=== PATIENT | male | born 1935 | race Caucasian/White ===

== ENCOUNTER 2016-12-05 12:47 | Emergency (ER) | payer MEDICARE, OTHER ==
[~2016-12-05] VITALS: Ht 180.3 cm; Wt 62.1 kg
[~2016-12-05 12:47] MED LIST: ALBUTEROL0.09 MG/A1 IH; ASPIRIN 325MG325 MG PO; ATORVASTATIN CA40 MG PO; AVAPRO75 MG PO; BENADRYL 25MG C25 MG PO; CYPROHEPTADINE H4 M1 PO; FERROUS SULFAT200 M1 PO; FUROSEMIDE 40MG40 M1 PO; GUAIFENESIN LA600 MG PO; HCTZ/LISINOPRIL1 TA1 PO; HYCODAN 5MG. TAB5 MG PO; IPRATROPIUM BROM3 M1 IN; LASIX 40MG. TAB40 MG PO; LOPRESSOR 25MG.25 MG PO; LORADAMED10 MG PO; LOSARTAN POTASS50 MG PO; MIRALAX(PO17 GM/1 PA PO; MIRTAZAPINE7.5 MG PO; MOBIC7.5 MG PO; NICOTINE 7 MG TD; NICOTINE PATCH;14 MG TD; NOMEDS; NYSTATIN 1100000 UNI PO; PANTOPRAZOLE PO; POTASSIUM CHLO20 ME2 PO; PRAMIPEXOLE D0.25 M1 PO; PREDNISONE20 MG PO; SYMBICORT 10.10.2 M1 IH; SYMBICORT1 AE1 IH; THE MEDICINE S200 M1 OR; TIOTROPIUM BRO18 MCG IH; WELLBUTRIN 150150 MG PO; Zithromax500 MG PO
[2016-12-05 13:04] LABS: LYMPH # 2.7 K/mm3 (0.7-4.5); LYMPH % 28.1 % (10-50)
[2016-12-05 13:13] LABS: HEMOGLOBIN 14.6 g/dL (14.1-18.0)
--- NOTE | 2016-12-05 13:14 | Emergency Room Report ---
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 N Clinical Suspician of Infection? N Mental Status: 1 - Regular (Normal Baseline) Sepsis Risk:Low Sepsis Risk Have you (or family members/close friends) recently traveled outside the [place]? N If Yes, where/when: Have you had exposure to infectious disease within the past month? N TB? Other? Specify: Comment The patient complains of trouble speaking and swallowing for 3-4 days. Family states symptoms started on Saturday 3 days ago. He denies headache or vomiting. He denies numbness or weakness of his extremities presently, but says that he awakened with his foot asleep several days ago and it went away. 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 He denies visual disturbance. ALLERGIES Coded Allergies: No Known Allergies (03/05/16) Home Medications Reported Medications ASPIRIN (Aspirin 325MG) 325 MG PO DAILY Losartan Potassium (Losartan 50MG) 50 MG PO DAILY #30 Furosemide 40 MG PO BID #60 PRAMIPEXOLE DI-HCL (Pramipexole Dihydrochloride) 0.25 MG PO QHS #30 History Medical History General CAD? No Angina: No [place]: No Hypertension? Yes Hyperlipidemia? No CHF? No DVT? No PE? No COPD? Yes Asthma? No Anemia? No GERD? No Gastric ulcers? No GI Bleed? No Hernia? No Thyroid Problems? No Hypothyroidism? No CVA? No Seizures? No Diabetes? No Renal Insuffiency? Yes End Stage Renal Disease? No UTI? No Stones? No BPH? No GB Disease: No Nephritic Syndrome? No Asplenia? No Hepatitis? No Sickle Cell Disease? No Arthritis? Yes Migraines? No Cataracts? No Glaucoma? No MRSA? No HIV? No TB? No Anxiety? No Depression? No Cancer? No More? No Immunization Hx DT/Tetanus Unknown Flu Refused Pneumonia Received In Past Surgical Hx Previous Surgery?Y RIGHT EAR SURGERY AAA Family History Family Hx Diabetes No CAD No Hypertension Yes Hyperlipidemia No Cancer No TB No Social History Smoking Hx Smoker: Never Smoker Tobacco: No Type N/A Packs/day < 1 Pack Alcohol Alcohol: No Review of Systems All Other Systems Reviewed and Negative Constitutional denies fever Gastrointestinal denies vomiting Psychiatric/Neurological denies headache, denies numbness, denies weakness Physical Exam Vital Signs Vital Signs Date Time Temp Pulse Resp B/P Pulse O2 O2 Flow FiO2 Ox Delivery Rate 12/05 1339 67 18 153/89 99 12/05 1333 97.6 87 18 153/89 97 12/05 1321 97.6 87 18 187/102 97 12/05 1249 97.6 87 18 197/93 97 General Appearance normal appearance, WD/WN Eye Exam - bilateral eye normal exam, bilateral eye PERRL, bilateral eye EOMI Ear, Nose, Throat hearing grossly normal, normal ENT inspection Neck normal inspection, non-tender, supple, full range of motion Respiratory Status Yes: trachea midline, chest symmetrical, non tender chest. No: respiratory distress. Lung Sounds bilateral: normal breath sounds, lungs clear. Cardiovascular normal exam, regular rate/rhythm, no peripheral edema, no gallop, no JVD, no murmur, no rub, normal peripheral pulses Peripheral Pulses Pulses normal Yes Gastrointestinal normal bowel sounds, normal exam, non tender, soft, no organomegaly Extremities non-tender, normal range of motion, normal inspection Neurologic alert, no motor/sensory deficits, oriented x 3, RIGHT facial paralysis, chronic. cranial nerves otherwise intact Mental status normal mood/affect Skin intact, normal color, warm/dry Medical Decision Making LABS/Meds/Orders Pt receiving controlled substance in ED? No Results/Orders Laboratory Tests 12/05/16 1255: Creatine Kinase 77, CK-MB (CK-2) Rel Index 0.6, CK and CKMB Interp < 0.5, Troponin I < 0.02 12/05/16 1255: Sodium 137, Potassium 4.1, Chloride 99, Carbon Dioxide 30, BUN 28 H, Creatinine 2.1 H, Estimated Creat Clear 24 L, Estimated GFR (MDRD) 30, Glucose 105, Calcium 9.2, Total Bilirubin 0.9, AST 8 L, ALT 9 L, Alkaline Phosphatase 114, Total Protein 8.2, Albumin 3.9, Globulin 4.3 H, Albumin/Globulin Ratio 0.9 L, PT 10.7, INR 0.99, APTT 29.3, WBC 9.5, RBC 5.02, Hgb 14.6, Hct 43.9, MCV 87.4, RDW 14.6, Plt Count 234, MPV 8.6, Gran % 60.9, Gran # 5.8, Lymphocytes % 28.1, Monocytes % 7.6, Eosinophils % 2.8, Basophils % 0.6, Lymphocytes # 2.7, Monocytes # 0.7, Eosinophils # 0.3, Basophils # 0.1, PUBS MCHC 33.0, MCH 28.8 Current Medication Orders Sig/Jhonny Start time Last Medication Dose Route Stop Time Status Admin Labetalol HCl 10 MG ONCE ONE 12/05 1330 DC 12/05 IV 12/05 1331 1328 Labetalol HCl 0 .STK-MED ONE 12/05 1327 DC IV Sodium Chloride 10 ML PRN PRN 12/05 1300 DCD IV 12/06 1256 Orders Procedure Date/time Status DIET-NOTHING BY MOUTH 12/05 D Active PARTIAL THROMBOPLASTIN TIME 12/05 1334 Complete PROTHROMBIN TIME 12/05 1334 Complete TUNNEL ELASTIC OPERATOR CHAINSTITCH 12/05 1303 Active CARDIAC ENZYMES 12/05 1303 Complete ELECTROCARDIOGRAM REQUEST 12/05 1256 Active IV SALINE LOCK 12/05 1256 Active CBC WITH AUTO DIFF 12/05 1256 Complete CHEM 12 PROFILE 12/[address] HEAD REQ 12/05 1255 Complete CM/EKG CM/EKG Comments EKG interpreted by Mina Olivas MD: Rhythm: sinus Rate: 81 [place]: normal Ectopy: none Conduction: normal ST Segment Changes: none T Wave Changes: none Q Waves: none No evidence of acute ischemia or injury Poor R-wave progression Low voltage QRS Baseline artifact and wander present, but I consider the EKG adequate for accurate interpretation. XRAY/CT/US XRAY/CT/US CT head Comment CT scan interpreted by radiologist: 17 mm RIGHT cerebellar hemorrhage with surrounding edema. Mass effect on the fourth ventricle, but still patent with no hydrocephalus. Probable hemorrhagic infarct. Progress - 1:26 PM: Discussed with Nina, pool coordinator [facility], who accepts the patient for Dr. Campbell in the emergency department. Departure Departure Disposition DC/XFER from ER to [facility] Clinical Impression Primary Impression: Cerebellar hemorrhage Qualifiers: Intracerebral hemorrhage etiology: nontraumatic Laterality: right Qualified Code: I61.4 - Nontraumatic intracerebral hemorrhage in cerebellum Condition STABLE ED Critical Care Critical Care Yes Time spent 30-74 min Vital system(s) involved: Central Nervous System I was present at bedside for Coordinating pt's care, Interpreting EKGs/Strips , During my initial exam, Discussing pt condition, Examining radiographs at [id number]
[2016-12-05 13:39] VITALS: BP 153/89
--- NOTE | 2016-12-05 14:49 | RADIOLOGY REPORT PS360 ---
CT HEAD W/O CONTRAST HISTORY: Left facial droop with weakness WEAKNESS ORDERING PHYSICIAN: Mina Olivas MD PATIENT AGE: 81 years COMPARISON: 07/22/2016 TECHNIQUE: Axial images obtained without contrast. Brain and bone windows reviewed. FINDINGS: There is a 17 mm area of hyperdensity noted in the right cerebellar hemisphere centrally with a small amount of surrounding edema consistent with acute cerebellar hemorrhage. No midline shift. There is some mild mass effect upon the right lateral aspect of the fourth ventricle. No hydrocephalus. There is mild generalized atrophy with periventricular ischemic gliotic changes. No midline shift evident. IMPRESSION: 1. 17 mm area of hemorrhage in the right cerebellar hemisphere with mild amount of surrounding edema which may be related to hemorrhagic infarction with minimal mass effect upon the fourth ventricle but no evidence of midline shift. Hemorrhagic neoplastic process is included in the differential diagnosis. 2. Mild atrophy with chronic ischemic change. Critical result called to Mina Olivas MD on 12/05/2016 1:13 PM.
== END 2016-12-05 13:40 | disposition short-term general hospital (02) ==
LOC: ER 12:47
PROVIDERS: Emergency Medicine
DX: I61.9 Nontraumatic intracerebral hemorrhage, unspecified (principal); R47.81 Slurred speech; I10 Essential (primary) hypertension; G81.91 Hemiplegia, unspecified affecting right dominant side; Z79.82 Long term (current) use of aspirin; Z79.899 Other long term (current) drug therapy; J44.9 Chronic obstructive pulmonary disease, unspecified

== ENCOUNTER 2017-01-26 09:47 | Emergency (ER) | payer MEDICARE, OTHER ==
[~2017-01-26] VITALS: Ht 180.3 cm; Wt 62.1 kg
--- NOTE | 2017-01-26 09:59 | Emergency Room Report ---
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 N Clinical Suspician of Infection? N Mental Status: 1 - Regular (Normal Baseline) Sepsis Risk:Low Sepsis Risk Have you (or family members/close friends) recently traveled outside the [place]? N If Yes, where/when: Have you had exposure to infectious disease within the past month? N TB? Other? Specify: Diarrhea for two weeks, diffuse abdominal pain for the last few days, no vomiting, no back pain, but has hx AAA with repair and is full code. No urinary sx. Has recently been taken off his usual Lasix and now had progressively edematous BLE w/o calf tenderness or SOB. No syncope. No new neurological sx. Seen by PCP this week with c/o chronic edema, and PCP did not recommend going back on the Lasix at that time. Since that visit, the edema is unchanged. He has no SOB. He is on a wait list for NH. Source patient, family ALLERGIES Coded Allergies: No Known Allergies (03/05/16) Home Medications Reported Medications ASPIRIN (Aspirin 325MG) 325 MG PO DAILY Losartan Potassium (Losartan 50MG) 50 MG PO DAILY #30 Furosemide 40 MG PO BID #60 PRAMIPEXOLE DI-HCL (Pramipexole Dihydrochloride) 0.25 MG PO QHS #30 History Medical History General CAD? No Angina: No [place]: No Hypertension? Yes Hyperlipidemia? No CHF? No DVT? No PE? No COPD? Yes Asthma? No Anemia? No GERD? No Gastric ulcers? No GI Bleed? No Hernia? No Thyroid Problems? No Hypothyroidism? No CVA? No Seizures? No Diabetes? No Renal Insuffiency? Yes End Stage Renal Disease? No UTI? No Stones? No BPH? No GB Disease: No Nephritic Syndrome? No Asplenia? No Hepatitis? No Sickle Cell Disease? No Arthritis? Yes Migraines? No Cataracts? No Glaucoma? No MRSA? No HIV? No TB? No Anxiety? No Depression? No Cancer? No More? No Immunization Hx DT/Tetanus Unknown Flu Refused Pneumonia Received In Past Surgical Hx Previous Surgery?Y RIGHT EAR SURGERY AAA Family History Family Hx Diabetes No CAD No Hypertension Yes Hyperlipidemia No Cancer No TB No Social History Smoking Hx Smoker: Current Every Day Smoker Tobacco: Yes Type Cigarettes Packs/day < 1 Pack Alcohol Alcohol: No Review of Systems All Other Systems Reviewed and Negative Constitutional no symptoms reported (diminished appetite, chronic) Cardiovascular denies chest pain (hx AAA w repair see hpi) Gastrointestinal see HPI, other (hx hernia;wtloss;rehab 2wksago) Musculoskeletal see HPI (edema off Lasix) Physical Exam Vital Signs Vital Signs Date Time Temp Pulse Resp B/P Pulse O2 O2 Flow FiO2 Ox Delivery Rate 01/26 0948 98.9 73 18 122/67 98 General Appearance normal appearance, WD/WN, no apparent distress Eye Exam - bilateral eye normal exam, bilateral eye PERRL, bilateral eye EOMI Neck normal inspection, non-tender, supple, full range of motion Respiratory Status Yes: trachea midline, chest symmetrical, non tender chest. No: respiratory distress, tender on palpation, use of accessory muscles, pain on inspiration, pain on expiration, productive cough, non productive cough. Lung Sounds bilateral: normal breath sounds, lungs clear. Cardiovascular normal exam, regular rate/rhythm, no gallop, no JVD, no murmur, no rub, normal peripheral pulses (mild ankle edema) Gastrointestinal normal bowel sounds, normal exam, non tender, soft, no organomegaly, no guarding, no rebound Extremities non-tender, normal range of motion, normal inspection, normal capillary refill, no calf tenderness, pedal edema Strength 5 Upper Ext (L), 5 Upper Ext (R), 5 Lower Ext (L), 5 Lower Ext (R) Neurologic alert, normal exam, no motor/sensory deficits, oriented x 3 Glascow Coma Scale Glascow Coma Scale Response Value EYE response: 4 Spontaneously 4 MOTOR response: 6 OBEYS 6 VERBAL response: 5 Oriented & Converses 5 Total 15 Skin intact, warm/dry, pallor Lymphatic no adenopathy Medical Decision Making LABS/Meds/Orders Pt receiving controlled substance in ED? No Results/Orders Laboratory Tests 01/26/17 1205: Urine Color YELLOW, Urine Appearance CLOUDY, Urine pH 5.5, Ur Specific [place] < = 1.005, Urine Protein NEGATIVE, Urine Ketones NEGATIVE, Urine Blood 2+ H, Urine Nitrate NEGATIVE, Urine Bilirubin NEGATIVE, Urine Urobilinogen 0.2, Ur Leukocyte Esterase NEGATIVE, Urine RBC 10-20, Urine WBC 20-50, Ur Squamous Epith Cells 5-10, Urine Bacteria 4+, Urine Glucose NEGATIVE 01/26/17 0945: Sodium 139, Potassium 4.1, Chloride 103, Carbon Dioxide 27, BUN 22 H, Creatinine 1.6 H, Estimated Creat Clear 32 L, Estimated GFR (MDRD) 42, Glucose 87, Calcium 8.7, Total Bilirubin 1.0, AST 14 L, ALT 9 L, Alkaline Phosphatase 104, Troponin I < 0.02, Total Protein 7.3, Albumin 3.1 L, Globulin 4.2 H, Albumin/Globulin Ratio 0.7 L, WBC 8.9, RBC 3.59 L, Hgb 11.0 L, Hct 33.4 L, MCV 93.1, RDW 14.8, Plt Count 192, MPV 7.8, Gran % 67.5, Gran # 6.0, Lymphocytes % 18.6, Monocytes % 8.5, Eosinophils % 5.0, Basophils % 0.4, Lymphocytes # 1.7, Monocytes # 0.8, Eosinophils # 0.4, Basophils # 0.0, PUBS MCHC 33.0, MCH 30.7 Orders Procedure Date/time Status DIET-NOTHING BY MOUTH 01/26 L Active CULTURE, URINE 01/26 1205 Active 12 LEAD EKG-AYAH (INITIAL) 01/26 1000 Active ELECTROCARDIOGRAM REQUEST 01/[address] SCAN REQ 01/27 956 Active URINALYSIS/COMPLETE 01/27 956 Complete TROPONIN I 01/27 956 Complete CBC WITH AUTO DIFF 01/27 956 Complete CHEM 12 PROFILE 01/27 956 Complete CM/EKG CM/EKG EKG rate, NSR, rhythm, no evid. of ischemic chgs, no ectopy, normal QRS, normal SC, normal EKG (NSR 71) XRAY/CT/US XRAY/CT/US CT abdomen, pelvis, chest CT interpretation by reviewed by me (report reviewed) Time results known: 1213 CT Results normal/NAD, stable repaired aneurysm; suspect mild ileus or enteritis (clinically has enteritis) Progress ED Progress Notes 1 Date 01/26/17 Time 1037 Comment I spoke extensively with his stepdaughter now at the bedside. He has a therapist , HHN, and family who check on him. He lives alone. With progressive weight loss and diminished appetite, she is trying to get him on waiting lists for various NH's in the area. He was in rehab in [place] until 2 wks ago for same and it was thought he was improved enough to be d/c'd home, but stepdaughter states he continues to have diminished appetite and diminished PO intake as before and she is working hard on placement. ED Progress Notes 2 Date 01/26/17 Time 1222 Comment No diarrhea while in ED today. Recheck abdomen soft with pos BS all four quadrants. Advised extremely close f/u w PCP regarding concern for diarrhea, encourage PO consumption, recommend having a sitter during the day for care while waiting on NH placement; apparently on list at [place] currently. Departure Departure Time of Disposition 1223 Disposition DC Home or Self Care(routine) Clinical Impression Primary Impression: Diarrhea Qualifiers: Diarrhea type: unspecified type Qualified Code: R19.7 - Diarrhea, unspecified Secondary Impressions: Pyuria Condition STABLE Referrals Manuel STEVENSON,[place] Patient Instructions Diarrhea Additional Instructions Bring a stool sample to Dr. Jackson; make an appointment in one to two days to see Dr. Jackson about the diarrheaand to recheck bowel sounds and abdominal exam, possible repeat imaging at Dr. Jackson' discretion, and to discuss the pedal edema issue as well as the chronic decreased appetite. Recommend Ensure protein drinks in the meantime. Discharge Counseling Counseled pt/family regarding diagnosis, test results, medications/RX, home care, follow up needs Prescriptions Current Visit Scripts CIPROFLOXACIN HCL (Cipro 250MG TAB) 250 MG PO BID #14 TAB ED Critical Care Critical Care No at 1166
[2017-01-26 10:01] LABS: LYMPH # 1.7 K/mm3 (0.7-4.5); LYMPH % 18.6 % (10-50)
--- OUTSIDE RECORDS SUMMARY | 2017-01-26 10:03 | External Medical Summary Rpt | CCD ---
Author Author , PAULO BATES Address Unknown Phone [email or web address] Purpose Continuity of Care Document - 12-05-2016 through 2016 Results Labs Lab Lab Date Result Refere Interp Status Commen Order Detail nces retati t Range on Magnesium SerPl-mCnc (12-14-2016 09:33) Magnesi 2.0 1.9-2.4 complet um 017 mg/dL ed SerPl-m 09:33 Cnc Phosphate SerPl-mCnc (12-05-2016 15:38) Phospha 3.1 2.5-4.5 complet te 017 mg/dL ed SerPl-m 15:38 Cnc Magnesium SerPl-mCnc (12-05-2016 15:38) Magnesi 2.3 1.9-2.4 complet um 017 mg/dL ed SerPl-m 15:38 Cnc
--- OUTSIDE RECORDS SUMMARY | 2017-01-26 10:03 | External Medical Summary Rpt | CCD ---
Author Author , PAULO BATES Address Unknown Phone [email or web address] Purpose Continuity of Care Document - 12-05-2016 [...]
--- OUTSIDE RECORDS SUMMARY | 2017-01-26 10:05 | External Medical Summary Rpt | CCD ---
Demographics Preferred Language [place]oth[place] Marital Status Unknown Jainism Affiliation Unknown Race Unknown Ethnic Group Unknown Author Author , PAULO BATES Address Unknown Phone Immunization Unable to retrieve immunization data due to connection failure with Immunization Registry. Please try again later.
--- OUTSIDE RECORDS SUMMARY | 2017-01-26 10:05 | External Medical Summary Rpt ---
Author Author [employer], [employer] Organization [employer] Address Unknown Phone Unavailable Results INR in Blood by Coagulation assay Observa Value Referen Units Interpr Notes Date tion ce etation Range IS PATIENT ON ANTICOAGULANTS? N PTT RESULTS MUST BE CALLED IF PT ON HEPARIN!!! Y INR in 0.9 - 1.1 No Normal INDICATIO Sep 13 Blood by informati N 2017 Coagulati on in 12:55 PM on assay source INR data RANGETHER APY FOR DVT, PE, ATRIAL FIB; 2.0 - 3.0PROPHY LAXIS FOR VTETHERAP Y FOR MECHANICA L HEART 2.5 - 3.5VALVE; PREVENTIO N OF SYSTEMICE MBOLISM SECONDARY TO AMI Prothromb 9.4 - SECONDS Normal No Sep 13 in time 11.8 informati 2017 (PT) in on in 12:55 PM Platelet source poor data plasma by Coagulati on assay Activated partial thrombplastin time (aPTT) in Platelet poor plasma by Coagulation assay Observa Value Referen Units Interpr Notes Date tion ce etation Range IS PATIENT ON ANTICOAGULANTS? N PTT RESULTS MUST BE CALLED IF PT ON HEPARIN!!! Y Activated 23.6 - SECONDS Normal No Sep 13 partial 34.0 informati 2017 thrombpla on in 12:55 PM stin time source (aPTT) data in Platelet poor plasma by Coagulati on assay Comprehensive metabolic 2000 panel in Serum or Plasma Observa Value Referen Units Interpr Notes Date tion ce etation Range Albumin/G 1.1 - 1.8 No Low No Sep 13 lobulin informati informati 2016 [Mass on in on in 12:55 PM ratio] in source source Serum or data data Plasma Albumin 3.4 - 5.0 gm/dL Normal No Sep 13 [Mass/vol informati 2017 ume] in on in 12:55 PM Serum or source Plasma data Alkaline 46 - 116 U/L Normal No Sep 13 phosphata informati 2017 se on in 12:55 PM [Enzymati source c data activity/ volume] in Serum or Plasma Bilirubin 0.2 - 1.0 mg/dL Normal No Sep 13 .total informati 2017 [Mass/vol on in 12:55 PM ume] in source Serum or data Plasma Urea 7 - 18 mg/dL High No Sep 13 nitrogen informati 2017 [Mass/vol on in 12:55 PM ume] in source Serum or data Plasma Calcium 8.5 - mg/dL Normal No Sep 13 [Mass/vol 10.1 informati 2017 ume] in on in 12:55 PM Serum or source Plasma data Chloride 98 - 107 mmoL/L Normal No Sep 13 [Moles/vo informati 2017 lume] in on in 12:55 PM Serum or source Plasma data Carbon 21.0 - mmoL/L Normal No Sep 13 dioxide, 32.0 informati 2017 total on in 12:55 PM [Moles/vo source lume] in data Serum or Plasma Creatinin 0.70 - mg/dL High No Sep 13 e 1.30 informati 2016 [Mass/vol on in 12:55 PM ume] in source Serum or data Plasma Creatinin 50 - 200 ML/MIN Low No Sep 13 e renal informati 2017 clearance on in 12:55 PM source predicted data by Cockcroft -Gault formula Estimated >60 ML/MIN No REFERENCE Sep 13 informati RANGE: 2017 glomerula on in >60 12:55 PM r source ML/MIN/1. filtratio data 73 SQUARE n rate METERSIf (GF this patient is -A merican, then multiply theresult by 1.210. Globulin 1.3 - 3.2 gm/dL High No Sep 13 [Mass/vol informati 2017 ume] in on in 12:55 PM Serum source data Glucose 74 - 106 mg/dL Normal No Sep 13 [Mass/vol informati 2017 ume] in on in 12:55 PM Serum or source Plasma data Potassium 3.5 - 5.1 mmoL/L Normal No Sep 13 informati 2017 [Moles/vo on in 12:55 PM lume] in source Serum or data Plasma Sodium 136 - 145 mmoL/L Normal No Sep 13 [Moles/vo informati 2017 lume] in on in 12:55 PM Serum or source Plasma data Aspartate 15 - 37 U/L Low No Sep 13 informati 2017 aminotran on in 12:55 PM sferase source [Enzymati data c activity/ volume] in Serum or Plasma Alanine 12 - 78 U/L Low No Sep 13 aminotran inform2016 sferase on in 12:55 PM [Enzymati source c data activity/ volume] in Serum or Plasma Protein 6.4 - 8.2 gm/dL Normal No Sep 13 [Mass/vol inform2016 ume] in on in 12:55 PM Serum or source Plasma data CBC W Auto Differential panel in Blood Observa Value Referen Units Interpr Notes Date tion ce etation Range Basophils 0 - 0.2 K/MM3 Normal No Sep 13 inform2016 [#/volume on in 12:55 PM ] in source Blood by data Automated count Basophils 0.1 - 2.0 % Normal No Sep 13 /100 inform2016 leukocyte on in 12:55 PM s in source Blood by data Automated count Eosinophi 0.0 - 0.4 K/mm3 Normal No Sep 13 ls 2016 [#/volume on in 12:55 PM ] in source Blood by data Automated count Eosinophi 0.1 - % Normal No Sep 13 ls/100 12.0 inform2016 leukocyte on in 12:55 PM s in source Blood by data Automated count Granulocy 1.3 - 8.0 K/mm3 Normal No Sep 13 regine 2016 [#/volume on in 12:55 PM ] in source Blood by data Automated count Granulocy 37.0 - % Normal No Sep 13 regine/100 80.0 inform2016 leukocyte on in 12:55 PM s in source Blood by data Automated count Hematocri 42.0 - % Normal No Sep 13 t [Volume 52.0 2016 on in 12:55 PM Fraction] source of Blood data Hemoglobi 14.1 - g/dL No No Sep 13 n 18.0 informati inform2016 [Mass/vol on in on in 12:55 PM ume] in source source Blood data data Lymphocyt 0.7 - 4.5 K/mm3 Normal No Sep 13 es 2016 [#/volume on in 12:55 PM ] in source Unspecifi data ed specimen by Automated count Lymphocyt 10 - 50 % Normal No Sep 13 es 2016 [#/volume on in 12:55 PM ] in source Unspecifi data ed specimen by Automated count Erythrocy 27 - 31.2 pg Normal No Sep 13 te mean 2016 corpuscul on in 12:55 PM ar source hemoglobi data n [Entitic mass] Erythrocy 31.8 - g/dl Normal No Sep te mean 35.4 inform2016 corpuscul on in 12:55 PM ar source hemoglobi data n concentra tion [Mass/vol ume] by Automated count Erythrocy 82.2 - fl Normal No Sep 13 te mean 97.8 inform2016 corpuscul on in 12:55 PM ar volume source [Entitic data volume] by Automated count Monocytes 0.1 - 1.0 K/mm3 Normal No Sep 13 inform2016 [#/volume on in 12:55 PM ] in source Blood by data Automated count Monocytes 1.7 - 9.3 % Normal No Sep 13 /100 inform2016 leukocyte on in 12:55 PM s in source Blood by data Automated count Platelet 7.4 - fl Normal No Sep mean 10.4 inform2016 volume on in 12:55 PM [Entitic source volume] data in Blood by Automated count Platelets 142 - 424 K/mm3 Normal No Sep 13 informati 2016 [#/volume on in 12:55 PM ] in source Blood data Erythrocy 4.6 - 6.2 M/mm3 Normal No Sep 13 regine inform2016 [#/volume on in 12:55 PM ] in source Amniotic data fluid Erythrocy 11.5 - % Normal No Sep 13 te 17.5 inform2016 distribut on in 12:55 PM ion width source [Entitic data volume] by Automated count Leukocyte 4.8 - K/MM3 Normal No Sep 13 s 10.8 informati 2016 [#/volume on in 12:55 PM ] in source Blood data
--- OUTSIDE RECORDS SUMMARY | 2017-01-26 10:05 | External Medical Summary Rpt | CCD ---
Demographics Preferred Language Citizen Of [place] Marital Status Unknown Mandaen Affiliation Unknown Race Unknown Ethnic Group Unknown Author Author , PAULO BATES Address Unknown Phone Immunization Unable to retrieve immunization data due to connection failure with Immunization Registry. Please try again later.
[2017-01-26 10:12] LABS: BUN 22 mg/dL (7-18); GFR (ESTIMATED) 42 ML/MIN (>60)
--- NOTE | 2017-01-26 11:35 | RADIOLOGY REPORT PS360 ---
CTA-CHEST HISTORY: HX OF AAA W/REPAIR, HAS ABD PAIN/DIRRHEA history of left lateral lower rib pain. Fall 5 days ago. Patient Age: 81 years: Male Ordering Physician: Fatmata Stack MD TECHNIQUE: Helical CT scanning performed through the chest following bolus administration of 100 cc Isovue-370 followed x 40 mL normal saline bolus. . From the acquired thin sections thickened axial coronal and sagittal reconstructions on CT workstation. COMPARISON :CT chest with contrast 01/08/2013. FINDINGS Regarding the left rib pain but there is a subtle acute fracture at the medial most left ninth rib near the costovertebral junction. This is best seen on axial images 51-48. The patient has some prominent degenerative, hypertrophic changes between the posterior ribs in the transverse processes of the lower thoracic spine through these regions. No transverse process or spinal vertebral fracture. T10-11 Mild posterior endplate hypertrophy and subtle posterior offset of T10- on T11. Features may yield borderline spinal stenosis at this level. It T9 extent facet hypertrophy on the left indenting left aspect of thecal sac mild to moderate facet arthropathy hypertrophy at other levels. Diffuse demineralization. No additional fractures identified. No pneumothorax. No pleural effusion. Emphysema. COPD again noted.. Only subtle incremental progression features since 2013. chronic lung parenchymal changes with fibrotic changes bilaterally most evident about the periphery the lungs. These fibrotic changes & early honeycombing most evident along posterior aspect right lower lobe There is an small slight stippled nodular appearance at the periphery of the superior RUL which has developed since prior study.. Could reflect a small area of active inflammatory change/infiltrate vs some progressive slightly nodular fibrotic changes. However Would benefit from follow-up CT 6 months to exclude any more significant process. Axial slice 19-20 .. Other tiny areas of slight increased peripheral density most likely due to scarring periphery of mid right lung, axial 30. Small less than 1 cm pleural-based area of nodularity just behind the reflection of major fissure at left lung axial slice 20 is new as well. Again favor scarring but would benefit from 6 month follow-up. . Stable apical pleural scarring. Mediastinum. No mediastinal mass or adenopathy. No hilar mass. Heart with development coronary artery calcification most of the LAD. We again see extensive circumferential somewhat irregular atheromatous plaque throughout the aortic arch and descending aorta. Is similar to 2013 exam no prominent interval change. Fairly good enhancement pulmonary arteries also noted with no evidence of pulmonary embolism.. IMPRESSION 1. Subtle acute left ninth rib fracture just adjacent to its costovertebral junction. 2. Aorta appear stable with Diffuse circumferential irregular atheromatous plaque throughout, similar to 2013 CT with contrast. No significant change 3. COPD. Pronounced Emphysema features with subtle progression since 2013 ..Fibrotic features most evident peripherally, with slight progression.Scattered areas of slight additional peripheral density most likely reflect progressive fibrotic features and scarring. .. With this note area Slight micronodular likely fibrotic change/ scarring likely accounts for area minimal periphery RUL, although difficult to exclude current minimal inflammatory process here. . Would encourage a follow-up CT chest 6 months to confirm stability of these minor new lung features since 2013 ..
--- NOTE | 2017-01-26 11:58 | RADIOLOGY REPORT PS360 ---
CTA-ABD HISTORY: HX OF AAA W/REPAIR, HAS ABD PAIN/DIRRHEA Patient Age: 81 years: Male Ordering Physician: Fatmata Stack MD TECHNIQUE: Helical CT scanning performed the chest and subsequent CTA abdomen following 100 cc Isovue-370 followed by 40 and multiple normal saline. Sagittal coronal and axial thickened reconstruction images performed on CT workstation. CTA technique COMPARISON :September 2014 CT without contrast FINDINGS The patient has had a aorta- biiliac endograft placed since previous 2014 study.. . Good contrast throughout the aorta. No acute findings. No evidence of leakage at aortic endograft.... The underlying aortic aneurysm measures up to maximum of 5.9 cm transverse x 1.6 cm AP just inferior to the level of the renal artery. Previously measured 5.85 cm maximally from similar measurement points-thus no significant change in size, of the underlying aneurysm. The aortic endograft demonstrates circumferential atheromatous plaquethroughout the aortic segment...- Having developed since placement 2014. No remarkable plaque at common iliac segments. Scanning was performed down to the upper pelvis. The mid and lower pelvis not included. The patient does have some scattered moderate air-fluid levels throughout the small bowel and some generous fluid in small bowel. Nonspecific reflect developing enteritis or ileus. Increased, prominent stool is seen throughout visualized portions of the colon suggesting mild/moderate constipation. No acute findings in the abdomen No free air. No free fluid. These early arterial enhancement of the liver, pancreas, kidneys are unremarkable. The pancreas unremarkable.. Gallbladder mildly distended but unremarkable. Patchy early enhancement Spleen is normal . Slightly plump left adrenal most likely stable since prior studies. Not of significant concern. Lumbar spine images are compared to plain films from May 2016. Again note multilevel degenerative disc changes & disc space narrowing.. Kyphosis from L1-L4 at lumbar spine.. Possible incomplete segmentation and partial fusion of this to the right at L4/5. Generous posterior posterior marginal osteophytes along with generous facet hypertrophy yield bilateral foraminal encroachment L4/5. No acute findings lumbar spine. No acute compression fractures. The transverse processes are intact. IMPRESSION 1 Aorto -biiliac endograft has been placed since 2014 CT abdomen. ... This appears intact... No leakage , & with stable appearance prior underlying aortic aneurysm. (It measures 5.9 cm maximal transverse x 4.6 cm AP, very similar to previous 2015 study) ... Incidental Note interval development of circumferential atheromatous plaque throughout the aortic segment of the endograft. 2. Prominent stool throughout the visualized portions of the colon may reflect mild/moderate constipation. (Imaging only performed down to the upper pelvis for today's study.) 3.. Scattered minimal air-fluid levels throughout generous caliber small bowel. Suspect Mild ileus. Less likely early enteritis 4. Degenerative changes and kyphosis lumbar spine as briefly described in text
[2017-01-26 12:20] LABS: URINE BILIRUBIN - DIPSTICK NEGATIVE (NEG); URINE BLOOD 2+ (NEG)
[2017-01-26] MEDS ORDERED: CIPRO 250MG TA250 MG PO (13:05)
[2017-01-26 13:23] VITALS: BP 116/65
== END 2017-01-26 13:23 | disposition home or self-care (01) ==
LOC: ER 09:47
PROVIDERS: Emergency Medicine
DX: R19.7 Diarrhea, unspecified (principal); N39.0 Urinary tract infection, site not specified; J44.9 Chronic obstructive pulmonary disease, unspecified; N28.9 Disorder of kidney and ureter, unspecified; F17.210 Nicotine dependence, cigarettes, uncomplicated
CPT/HCPCS: Q9967

== ENCOUNTER 2017-01-28 10:50 | Observation (INO) | payer MEDICARE, OTHER ==
[~2017-01-28] VITALS: Ht 167.6 cm; Wt 61.7 kg
[~2017-01-28 10:50] MED LIST changes: +CIPRO 250MG TA250 MG PO
--- OUTSIDE RECORDS SUMMARY | 2017-01-28 10:56 | External Medical Summary Rpt | Continuity of Care Document ---
Author Author Organization Address Unknown Phone Unavailable Care Team Providers Care Condenser Setter Name Role Phone , Unavailable Unavailable EMS Current Medications Section EMS Allergies and Adverse Reactions EMS Past Medical History Medications Administered Section EMS Procedures Performed EMS Vital Signs EMS Patient Care Report Narrative EC-1 responded to [facility] ER for an ALS transport to ER. Pt is a 81 y/o M that is being transported to for a CT confirmed Rt side cerebellar bleed. Pt came to ER this date after a couple days of headache and unsteadiness. Pt found on EMS arrival A+Ox4 laying in ER bed. Pt does not have any c/c at this time. Pt vitals stable. Pt moved to cot and loaded into EC unit. Pt has bi-lat AC IV locks. Pt placed on EKG and shows NSR. Bp 156/72 SPO2 96 RA. Pt remained stable and required no other treatment in route
--- OUTSIDE RECORDS SUMMARY | 2017-01-28 10:56 | External Medical Summary Rpt | Continuity of Care Document ---
Author Author Organization Address Unknown Phone Unavailable Care Team Providers Care Compliance Assistant Name Role Phone , Unavailable Unavailable EMS Current Medications Section EMS Allergies and Adverse Reactions EMS Past Medical History Medications Administered Section EMS Procedures Performed EMS Vital Signs EMS Patient Care Report Narrative EC-1 responded to [facility] ER for an ALS transport to ER. [...]
--- OUTSIDE RECORDS SUMMARY | 2017-01-28 10:57 | External Medical Summary Rpt ---
Author Author [employer]UL[employer], [employer] Organization [employer] Address Unknown Phone Unavailable Results CBC W Auto Differential panel in Blood Observa Value Referen Units Interpr Notes Date tion ce etation Range Basophils 0 - 0.2 K/MM3 Normal No Jan 4 informati 2017 9:45 [#/volume on in AM ] in source Blood by data Automated count Basophils 0.1 - 2.0 % Normal No Jan 4 /100 informati 2017 9:45 leukocyte on in AM s in source Blood by data Automated count Eosinophi 0.0 - 0.4 K/mm3 Normal No Jan 4 ls informati 2017 9:45 [#/volume on in AM ] in source Blood by data Automated count Eosinophi 0.1 - % Normal No Jan 4 ls/100 12.0 informati 2017 9:45 leukocyte on in AM s in source Blood by data Automated count Granulocy 1.3 - 8.0 K/mm3 Normal No Jan 4 regine informati 2017 9:45 [#/volume on in AM ] in source Blood by data Automated count Granulocy 37.0 - % Normal No Jan 4 regine/100 80.0 informati 2017 9:45 leukocyte on in AM s in source Blood by data Automated count Hematocri 42.0 - % Low No Jan 4 t [Volume 52.0 informati 2017 9:45 on in AM Fraction] source of Blood data Hemoglobi 14.1 - g/dL Low No Jan 4 n 18.0 informati 2017 9:45 [Mass/vol on in AM ume] in source Blood data Lymphocyt 0.7 - 4.5 K/mm3 Normal No Jan 4 es informati 2017 9:45 [#/volume on in AM ] in source Unspecifi data ed specimen by Automated count Lymphocyt 10 - 50 % Normal No Jan 4 es informati 2017 9:45 [#/volume on in AM ] in source Unspecifi data ed specimen by Automated count Erythrocy 27 - 31.2 pg Normal No Jan 4 te mean informati 2016 9:45 corpuscul on in AM ar source hemoglobi data n [Entitic mass] Erythrocy 31.8 - g/dl Normal No Jan 26 te mean 35.4 informati 2016 9:45 corpuscul on in AM ar source hemoglobi data n concentra tion [Mass/vol ume] by Automated count Erythrocy 82.2 - fl Normal No Jan 26 te mean 97.8 informati 2016 9:45 corpuscul on in AM ar volume source [Entitic data volume] by Automated count Monocytes 0.1 - 1.0 K/mm3 Normal No Jan 26 informati 2016 9:45 [#/volume on in AM ] in source Blood by data Automated count Monocytes 1.7 - 9.3 % Normal No Jan 26 /100 informati 2016 9:45 leukocyte on in AM s in source Blood by data Automated count Platelet 7.4 - fl Normal No Jan 26 mean 10.4 informati 2016 9:45 volume on in AM [Entitic source volume] data in Blood by Automated count Platelets 142 - 424 K/mm3 Normal No Jan 26 informati 2016 9:45 [#/volume on in AM ] in source Blood data Erythrocy 4.6 - 6.2 M/mm3 Low No Jan 26 regine informati 2016 9:45 [#/volume on in AM ] in source Amniotic data fluid Erythrocy 11.5 - % Normal No Jan 26 te 17.5 informati 2016 9:45 distribut on in AM ion width source [Entitic data volume] by Automated count Leukocyte 4.8 - K/MM3 Normal No Jan 26 s 10.8 informati 2016 9:45 [#/volume on in AM ] in source Blood data INR in Blood by Coagulation assay Observa Value Referen Units Interpr Notes Date tion ce etation Range IS PATIENT ON ANTICOAGULANTS? N PTT RESULTS MUST BE CALLED IF PT ON HEPARIN!!! Y INR in 0.9 - 1.1 No Normal INDICATIO Sep 13 Blood by informati N 2016 Coagulati on in 12:55 PM on assay [...] SECONDS Normal No Sep 13 partial 34.0 inform 2017 thrombpla on in 12:55 PM stin [...] gm/dL Normal No Sep 13 [Mass/vol informati 2016 ume] in on in 12:55 PM Serum or source Plasma data Alkaline 46 - 116 U/L Normal No Sep 13 phosphata informati 2016 se on in 12:55 PM [Enzymati source c data activity/ volume] in Serum or Plasma Bilirubin 0.2 - 1.0 mg/dL Normal No Sep 13 .total informati 2016 [Mass/vol on in 12:55 PM ume] in source Serum or data Plasma Urea 7 - 18 mg/dL High No Sep 13 nitrogen informati 2016 [Mass/vol on in 12:55 PM ume] in source Serum or data Plasma Calcium 8.5 - mg/dL Normal No Sep 13 [Mass/vol 10.1 informati 2016 ume] in on in 12:55 PM Serum [...] ML/MIN Low No Sep 13 e renal inform 2017 clearance on in 12:55 PM source predicted data by Cockcroft -Gault formula Estimated >60 ML/MIN No REFERENCE Sep 13 informati RANGE: 2017 glomerula on in >60 12:55 PM r source ML/MIN/1. filtratio data 73 SQUARE n rate METERSIf (GF this patient is -A merican, then multiply theresult by 1.210. Globulin 1.3 - 3.2 gm/dL High No Sep 13 [Mass/vol informati 2016 ume] in on in 12:55 PM Serum source data Glucose 74 - 106 mg/dL Normal No Sep 13 [Mass/vol informati 2016 ume] in on in 12:55 PM Serum or source Plasma data Potassium 3.5 - 5.1 mmoL/L Normal No Sep 13 inform2016 [Moles/vo on in 12:55 PM lume] in source Serum or data Plasma Sodium 136 - 145 mmoL/L Normal No Sep 13 [Moles/vo informati 2016 lume] in on in 12:55 PM Serum or source Plasma data Aspartate 15 - 37 U/L Low No Sep 13 inform 2017 aminotran on in 12:55 PM sferase source [Enzymati data c activity/ volume] in Serum or Plasma Alanine 12 - 78 U/L Low No Sep 13 aminotran inform 2017 sferase on in 12:55 PM [Enzymati source c data activity/ volume] in Serum or Plasma Protein 6.4 - 8.2 gm/dL Normal No Sep 13 [Mass/vol informati 2016 ume] in on in 12:55 PM Serum [...] 8.0 K/mm3 Normal No Sep 13 regine inform2016 [#/volume on in 12:55 PM ] in source Blood by data Automated count Granulocy 37.0 - % Normal No Sep 13 regine/100 80.0 inform2016 leukocyte on in 12:55 PM s in source Blood by data Automated count Hematocri 42.0 - % Normal No Sep t [Volume 52.0 informati 2016 on in 12:55 PM Fraction] source of Blood data Hemoglobi 14.1 - g/dL No No Sep 13 n 18.0 informati inform2016 [Mass/vol on in on in 12:55 PM ume] in source source Blood data data Lymphocyt 0.7 - 4.5 K/mm3 Normal No Sep es inform2016 [#/volume on in 12:55 PM ] in source Unspecifi data ed specimen by Automated count Lymphocyt 10 - 50 % Normal No Dec 05 es 2016 [#/volume on in 12:55 PM ] in source Unspecifi data ed specimen by Automated count Erythrocy 27 - 31.2 pg Normal No Sep te mean inform2016 corpuscul on in 12:55 PM ar source hemoglobi data n [Entitic mass] Erythrocy 31.8 - g/dl Normal No Sep te mean 35.4 inform2016 corpuscul on in 12:55 PM ar source hemoglobi data n concentra tion [Mass/vol ume] by Automated count Erythrocy 82.2 - fl Normal No Sep te mean 97.8 inform2016 corpuscul on in 12:55 PM ar volume source [Entitic data volume] by Automated count Monocytes 0.1 - 1.0 K/mm3 Normal No Sep 13 2016 [#/volume on in 12:55 PM ] in source Blood by data Automated count Monocytes 1.7 - 9.3 % Normal No Sep 13 /100 inform2016 leukocyte on in 12:55 PM s in source Blood by data Automated count Platelet 7.4 - fl Normal No Sep 13 mean 10.4 inform2016 volume on in 12:55 PM [Entitic source volume] data in Blood by Automated count Platelets 142 - 424 K/mm3 Normal No Sep 13 2016 [#/volume on in 12:55 PM ] in source Blood data Erythrocy 4.6 - 6.2 M/mm3 Normal No Sep 13 regine informati 2017 [#/volume on in 12:55 PM ] in source Amniotic data fluid Erythrocy 11.5 - % Normal No Sep 13 te 17.5 informati 2017 distribut on in 12:55 PM ion width source [Entitic data volume] by Automated count Leukocyte 4.8 - K/MM3 Normal No Sep 13 s 10.8 informati 2016 [#/volume on in 12:55 PM ] in source Blood data
--- OUTSIDE RECORDS SUMMARY | 2017-01-28 10:57 | External Medical Summary Rpt | CCD ---
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 C INTRACEREBR AL HEMORRHAGE IN CEREBELLUM I71.3 ABDOMINAL AORTIC ANEURYSM, RUPTURED M79.89 OTHER SPECIFIED SOFT TISSUE DISORDERS N28.9 DISORDER OF KIDNEY AND URETER, UNSPECIFIED N39.0 URINARY TRACT INFECTION, SITE NOT SPECIFIED R19.7 DIARRHEA, UNSPECIFIED R79.89 OTHER SPECIFIED ABNORMAL FINDINGS OF BLOOD CHEMISTRY Results Labs Lab Lab Date Result Refere Interp Status Commen Order Detail nces retati t Range on Urinalysis with microscopy (01-26-2017 12:05) Urine 20 - 50 O complet leukocy 017 ed regine 12:05 wbc/hpf count (number /volume ) Urine 0.2 0.2 NEG complet urobili 017 L ed nogen 12:05 E.U./dL detecti on by test str [place] 5-10 OCC complet s 017 5-10 L ed epithel 12:05 #/hpf ial cells detecti on in u Urine < = 1.005-1 complet specifi 017 1.005 .030 ed c 12:05 gravity measure ment Erythro 10-20 0 complet cytes 017 10-20 L ed detecti 12:05 on in rbc/hpf urine sedimen t Urine = NEG complet protein 017 NEGATIV ed 12:05 E mg/dL measure ment by automat ed t Urine = 5.5 5.0-8.5 complet pH 017 ed 12:05 Urine NEGATIV NEG complet nitrite 017 E ed 12:05 NEGATIV detecti E L on by test strip Mucus NEGATIV NEG complet detecti 017 E ed on in 12:05 NEGATIV urine E L sedimen t by lig Urine NEGATIV NEG complet ketones 017 E ed 12:05 NEGATIV detecti E L on by mg/dL automat ed regine Glucose = NEG complet ur 017 NEGATIV ed test 12:05 E strip Urine YELLOW YELLOW complet color 017 YELLOW ed 12:05 L Urine 2+ 2+ L NEG complet blood 017 ed detecti 12:05 on Urine NEGATIV NEG complet total 017 E ed bilirub 12:05 NEGATIV in E L detecti on by test Bacteri 4+ 4+ L O complet a 017 ed detecti 12:05 on in urine sedimen t by Urine CLOUDY CLEAR complet appeara 017 CLOUDY ed nce 12:05 L determi nation Serum or plasma troponin i.cardiac measu (01-26-2017 09:45) Serum < 0.02 0.00-0. complet or 017 ng/mL 06 ed plasma 09:45 troponi n i.cardi ac measu Comprehensive metabolic panel (01-26-2017 09:45) Protein = 7.3 6.4-8.2 complet total 017 gm/dL ed ser/darron 09:45 s ALT = 9 U/L 12-78 complet (SGPT) 017 ed ser/darron 09:45 s Serum = 14 15-37 complet or 017 U/L ed plasma 09:45 asparta te aminotr ansfera Serum = 139 136-145 complet sodium 017 mmoL/L ed measure 09:45 ment Serum = 4.1 3.5-5.1 complet potassi 017 mmoL/L ed um 09:45 measure ment Serum = 87 74-106 complet or 017 mg/dL ed plasma 09:45 glucose measure ment (mas Serum = 4.2 1.3-3.2 complet globuli 017 gm/dL ed n 09:45 measure ment (mass/v olume) Estimat = 42 >60 complet ed 017 ML/MIN ed glomeru 09:45 lar filtrat ion rate (GF Estimat = 32 50-200 complet ion of 017 ML/MIN ed creatin 09:45 ine renal clearan ce Serum = 1.6 0.70-1. complet or 017 mg/dL 30 ed plasma 09:45 creatin ine measure ment ( Carbon = 27 21.0-32 complet dioxide 017 mmoL/L .0 ed 09:45 measure ment Serum = 103 98-107 complet or 017 mmoL/L ed plasma 09:45 chlorid e measure ment (mo Serum = 8.7 8.5-10. complet or 017 mg/dL 1 ed plasma 09:45 calcium measure ment (mas Serum = 22 7-18 complet or 017 mg/dL ed plasma 09:45 urea nitroge n measure men Serum = 1.0 0.2-1.0 complet or 017 mg/dL ed plasma 09:45 total bilirub in measure m Serum = 104 46-116 complet or 017 U/L ed plasma 09:45 alkalin e phospha tase ruben Serum = 3.1 3.4-5.0 complet or 017 gm/dL ed plasma 09:45 albumin measure ment (mas Serum = 0.7 1.1-1.8 complet or 017 ed plasma 09:45 albumin /globul in mass ra CBC w auto diff (01-26-2017 09:45) Blood = 8.9 4.8-10. complet leukocy 017 K/MM3 8 ed regine 09:45 count (number /volume ) Automat = 14.8 11.5-17 complet ed 017 % .5 ed erythro 09:45 cyte distrib ution width Red = 3.59 4.6-6.2 complet blood 017 M/mm3 ed cell 09:45 count Blood = 192 142-424 complet platele 017 K/mm3 ed t count 09:45 Automat = 7.8 7.4-10. complet ed 017 fl 4 ed blood 09:45 platele t mean volume ruben [place] % 11-04-2 = 8.5 % 1.7-9.3 complet 017 ed 09:45 Absolut = 0.8 0.1-1.0 complet e 017 K/mm3 ed monocyt 09:45 e count Automat = 93.1 82.2-97 complet ed 017 fl .8 ed erythro 09:45 cyte mean corpusc ular v Automat = 33.0 31.8-35 complet ed 017 g/dl .4 ed erythro 09:45 cyte mean corpusc ular h Mean = 30.7 27-31.2 complet corpusc 017 pg ed ular 09:45 hemoglo bin (M[facility]) determ Lymphoc = 18.6 10-50 complet yte 017 % ed count, 09:45 blood, automat ed Absolut = 1.7 0.7-4.5 complet e 017 K/mm3 ed lymphoc 09:45 yte count Blood = 11.0 14.1-18 complet hemoglo 017 g/dL .0 ed bin 09:45 measure ment (mass/v olum Blood = 33.4 42.0-52 complet hematoc 017 % .0 ed rit 09:45 (volume fractio n) Granulo = 67.5 37.0-80 complet cyte 017 % .0 ed percent 09:45 age Blood = 6.0 1.3-8.0 complet granulo 017 K/mm3 ed cytes 09:45 automat ed count (numb Automat = 5.0 % 0.1-12. complet ed 017 0 ed blood 09:45 eosinop hils/10 0 leukocy t Automat = 0.4 0.0-0.4 complet ed 017 K/mm3 ed blood 09:45 eosinop hil count Baso % = 0.4 % 0.1-2.0 complet 017 ed 09:45 Automat = 0.0 0-0.2 complet ed 017 K/MM3 ed blood 09:45 basophi l count (count/ vo Magnesium [facility] (12-14-2016 09:33) Magnesi 2.0 1.9-2.4 complet um 017 mg/dL ed SerPl-m 09:33 Cnc Phosphate SerPl-[facility] (12-05-2016 15:38) Phospha 3.1 2.5-4.5 complet te 017 mg/dL ed SerPl-m 15:38 Cnc Magnesium SerPl-[facility] (12-05-2016 15:38) Magnesi 2.3 1.9-2.4 complet um 017 mg/dL ed SerPl-m 15:38 Cnc
--- OUTSIDE RECORDS SUMMARY | 2017-01-28 10:57 | External Medical Summary Rpt | CCD ---
Author Author , PAULO Organization PAULO Address Unknown Phone [email or web address] Purpose Continuity of Care Document - 12-05-2016 [...] blood 09:45 platele t mean volume ruben [place] % 11-04-2 = 8.5 % 1.7-9.3 complet [...] 09:45 basophi l count (count/ vo Magnesium [facility] (12-14-2016 09:33) Magnesi 2.0 1.9-2.4 complet um 017 mg/dL ed SerPl-m 09:33 Cnc Phosphate SerPl-[facility] (12-05-2016 15:38) Phospha 3.1 2.5-4.5 complet te 017 mg/dL ed SerPl-m 15:38 Cnc Magnesium SerPl-[facility] (12-05-2016 15:38) Magnesi 2.3 1.9-2.4 complet um 017 mg/dL ed SerPl-m 15:38 Cnc
--- OUTSIDE RECORDS SUMMARY | 2017-01-28 10:57 | External Medical Summary Rpt | CCD ---
Author Author , YEIMY BATES Address Unknown Phone [email or web address] Immunization Name Date Rout CVX Reac Dose Comm Prov Is Faci e tion ent ider Refu lity Give sed n PPV2 07-1 33 0.5 Hist [facility] No [facility] 3 1-20 mL oric 1 1 15 al Info rmat ion - Sour ce Unsp ecif ied
--- OUTSIDE RECORDS SUMMARY | 2017-01-28 10:57 | External Medical Summary Rpt | CCD ---
Author Author , YEMIY BATES Address Unknown Phone [email or web address] Immunization Name Date Rout CVX Reac Dose Comm Prov Is Faci e tion ent ider Refu lity Give sed n PPV2 07-1 33 0.5 Hist [facility] No [facility] 3 1-20 mL oric 1 1 15 al Info rmat ion - Sour ce Unsp ecif ied
--- NOTE | 2017-01-28 11:32 | HISTORY AND PHYSICAL REPORT ---
Demographics: Admit date: 01/28/17 Chief complaint: Weakness PRIMARY DIAGNOSIS: DEHYDRATION AND DIARRHEA Allergies: Coded Allergies: No Known Allergies (03/05/16) History of present illness: History of present illness: 81-year-old male with recent hospitalization from December 05 to December 14 at the [facility] after being transferred from [facility] with a RIGHT cerebral hemorrhage. After a nine-day hospital stay at which also included a gastrointestinal workup with some type of colonic ulcer discovered the patient was discharged to [facility] in [place]. His daughter who provides most of the history states that's when diarrhea began. At discharge from diarrhea began and continue all he was staying at [facility] for snf purposes. It is continued to this day now having diarrhea for approximately 6 weeks. Diarrhea however has increased in frequency and he has lost track of the number of bowel movements has had in the last 24 hours. He's developed some rectal discomfort from frequent bowel movements. Oddly enough patient presented the emergency department 2 days ago and was unable to produce a stool sample while in the emergency department. CT scan at that time showed constipation in the large intestine and possible early enteritis and small intestine. Patient's appetite has been poor. He is also developed swelling of his legs. He complains of cough but no shortness of breath. His long-time smoker with underlying chronic obstructive pulmonary disease. Patient also has peripheral arterial disease. In the office the patient looked weak and is having difficulty staying awake which was a change in his condition compared to 2 weeks prior when I had seen him. Patient had noticeable edema in the legs from the proximal shins to the ankles. He had poor skin turgor as well as color. Decision was made to admit for labs and IV fluids. Past medical history: Family HX Family Hx Insignificant No Diabetes No CAD No Hypertension Yes Hyperlipidemia No Cancer No TB No Immunization HX DT/Tetanus Unknown Flu Refused Pneumonia Received In Past General CAD? No Angina: No [place]: No Hypertension? Yes Hyperlipidemia? No CHF? No DVT? No PE? No COPD? Yes Asthma? No Anemia? No GERD? No Gastric ulcers? No GI Bleed? No Hernia? No Thyroid Problems? No Hypothyroidism? No CVA? No Seizures? No Diabetes? No Renal Insuffiency? Yes UTI? No Stones? No BPH? No GB Disease: No Nephritic Syndrome? No Asplenia? No Hepatitis? No Sickle Cell Disease? No Arthritis? Yes Migraines? No Cataracts? No Glaucoma? No MRSA? No HIV? No TB? No Anxiety? No Depression? No Cancer? No More? No Past Surgical HX Previous Surgery?Y RIGHT EAR SURGERY AAA Current home meds: Active Scripts CIPROFLOXACIN HCL (Cipro 250MG TAB) 250 MG PO BID #14 TAB Prov: 01/26/17 Reported Medications ASPIRIN (Aspirin 325MG) 325 MG PO DAILY Losartan Potassium (Losartan 50MG) 50 MG PO DAILY #30 Furosemide 40 MG PO BID #60 PRAMIPEXOLE DI-HCL (Pramipexole Dihydrochloride) 0.25 MG PO QHS #30 Social Hx: Smoking HX Tobacco No Alcohol Alcohol: No Hx of Drug Use Drug Use? No Patien't marital status is single Patient's support system is fair Review of systems: Constitutional weakness. No: chills, diaphoresis, fever. Respiratory cough. Cardiovascular no symptoms reported Gastrointestinal/Abdominal diarrhea, difficulty swallowing Genitourinary no symptoms reported. Musculoskeletal back pain. Neurological Yes: weakness. Exam: Additional information: Patient fall asleep in the office during the interview. He can be awakened rather easily and will answer questions. Speech is somewhat difficult to understand due to a combination of his weakness as well as some dry mouth. 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 Oropharynx is dry. Neck is without lymphadenopathy. Lungs are distant but clear. Heart has a regular rate and rhythm. Abdomen is thin and soft. Extremities have 2+ edema from proximal shins to the feet. Plan: Problem List 1. Status post AAA (abdominal aortic aneurysm) repair Status Acute 2. Diarrhea 3. Pedal edema Plan: Patient's been admitted. Labs will be drawn including complete metabolic panel, complete blood count and a diarrhea panel. Infectious disease will be treated accordingly. I suspect diarrhea could possibly be due to the patient's protonIX which is a new medication he was started on at discharge from . Care management will be consult did as family would prefer the patient be placed although they have had it explained to them in the past how the system works with Medicare guidelines.
--- NOTE | 2017-01-28 11:32 | HISTORY AND PHYSICAL REPORT ---
Demographics: Admit date: 01/28/17 Chief complaint: Weakness PRIMARY DIAGNOSIS: DEHYDRATION AND DIARRHEA Allergies: Coded Allergies: No Known Allergies (03/05/16) History of present illness: History of present illness: 81-year-old male with recent hospitalization from December 05 to December 14 at the [facility] after being transferred from [facility] with a RIGHT cerebral hemorrhage. After a nine-day hospital stay at which also included a gastrointestinal workup with some type of colonic ulcer discovered the patient was discharged to [facility] in [place]. His daughter who provides most of the history states that's when diarrhea began. At discharge from diarrhea began and continue all he was staying at [facility] for halfway purposes. It is continued to this day now having diarrhea for approximately 6 weeks. Diarrhea however has increased in frequency and he has lost track of the number of bowel movements has had in the last 24 hours. He's developed some rectal discomfort from frequent bowel movements. Oddly enough patient presented the emergency department 2 days ago and was unable to produce a stool sample while in the emergency department. CT scan at that time showed constipation in the large intestine and possible early enteritis and small intestine. Patient's appetite has been poor. He is also developed swelling of his legs. He complains of cough but no shortness of breath. His long-time smoker with underlying chronic obstructive pulmonary disease. Patient also has peripheral arterial disease. In the office the patient looked weak and is having difficulty staying awake which was a change in his condition compared to 2 weeks prior when I had seen him. Patient had noticeable edema in the legs from the proximal shins to the ankles. He had poor skin turgor as well as color. Decision was made to admit for labs and IV fluids. Past medical history: Family HX Family Hx Insignificant No Diabetes No CAD No Hypertension Yes Hyperlipidemia No Cancer No TB No Immunization HX DT/Tetanus Unknown Flu Refused Pneumonia Received In Past General CAD? No Angina: No ID: No Hypertension? Yes Hyperlipidemia? No CHF? No DVT? No PE? No COPD? Yes Asthma? No Anemia? No GERD? No Gastric ulcers? No GI Bleed? No Hernia? No Thyroid Problems? No Hypothyroidism? No CVA? No Seizures? No Diabetes? No Renal Insuffiency? Yes UTI? No Stones? No BPH? No GB Disease: No Nephritic Syndrome? No Asplenia? No Hepatitis? No Sickle Cell Disease? No Arthritis? Yes Migraines? No Cataracts? No Glaucoma? No MRSA? No HIV? No TB? No Anxiety? No Depression? No Cancer? No More? No Past Surgical HX Previous Surgery?Y RIGHT EAR SURGERY AAA Current home meds: Active Scripts CIPROFLOXACIN HCL (Cipro 250MG TAB) 250 MG PO BID #14 TAB Prov: 01/26/17 Reported Medications ASPIRIN (Aspirin 325MG) 325 MG PO DAILY Losartan Potassium (Losartan 50MG) 50 MG PO DAILY #30 Furosemide 40 MG PO BID #60 PRAMIPEXOLE DI-HCL (Pramipexole Dihydrochloride) 0.25 MG PO QHS #30 Social Hx: Smoking HX Tobacco No Alcohol Alcohol: No Hx of Drug Use Drug Use? No Patien't marital status is single Patient's support system is fair Review of systems: Constitutional weakness. No: chills, diaphoresis, fever. Respiratory cough. Cardiovascular no symptoms reported Gastrointestinal/Abdominal diarrhea, difficulty swallowing Genitourinary no symptoms reported. Musculoskeletal back pain. Neurological Yes: weakness. Exam: Additional information: Patient fall asleep in the office during the interview. He can be awakened rather easily and will answer questions. Speech is somewhat difficult to understand due to a combination of his weakness as well as some dry mouth. 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 Oropharynx is dry. Neck is without lymphadenopathy. Lungs are distant but clear. Heart has a regular rate and rhythm. Abdomen is thin and soft. Extremities have 2+ edema from proximal shins to the feet. Plan: Problem List 1. Status post AAA (abdominal aortic aneurysm) repair Status Acute 2. Diarrhea 3. Pedal edema Plan: Patient's been admitted. Labs will be drawn including complete metabolic panel, complete blood count and a diarrhea panel. Infectious disease will be treated accordingly. I suspect diarrhea could possibly be due to the patient's protonIX which is a new medication he was started on at discharge from . Care management will be consult did as family would prefer the patient be placed although they have had it explained to them in the past how the system works with Medicare guidelines.
[2017-01-28 13:07] VITALS: BP 111/64
[2017-01-28 13:23] LABS: HEMOGLOBIN 11.9 g/dL (14.1-18.0); LYMPH # 1.6 K/mm3 (0.7-4.5); LYMPH % 20.7 % (10-50)
[2017-01-28 14:00] LABS: AEROMONAS NOT DETECTED (NOT DETECTE); ASTROVIRUS NOT DETECTED (NOT DETECTE); CYCLOSPORA CAYETANENSIS NOT DETECTED (NOT DETECTE); E COLI O157 NOT DETECTED (NOT DETECTE); ENTEROAGGREGATIVE E COLI NOT DETECTED (NOT DETECTE); ENTEROPATHOGENIC E COLI NOT DETECTED (NOT DETECTE); ENTEROTOXIGENIC E COLI NOT DETECTED (NOT DETECTE); NOROVIRUS NOT DETECTED (NOT DETECTE); SAPOVIRUS NOT DETECTED (NOT DETECTE); SHIGA-LIKE TOXIN PROD. E COLI NOT DETECTED (NOT DETECTE); SHIGELLA/ENTEROINVASIVE E COLI NOT DETECTED (NOT DETECTE); VIBRIO CHOLERAE NOT DETECTED (NOT DETECTE)
[2017-01-28 15:28] VITALS: BP 119/58
[2017-01-28 20:30] VITALS: BP 118/70
[2017-01-28 21:15] VITALS: BP 118/70
[2017-01-29 04:43] VITALS: BP 133/59
[2017-01-29 06:19] LABS: LYMPH # 1.7 K/mm3 (0.7-4.5); LYMPH % 27.2 % (10-50)
[2017-01-29 06:39] LABS: HEMOGLOBIN 9.9 g/dL (14.1-18.0)
--- NOTE | 2017-01-29 07:29 | PHARMACY CLINIC NOTE ---
Patient Demographics Patient Demographics Admission date: 01/28/17 Date: 01/29/17 Time: 728 Allergies Coded Allergies: No Known Allergies (01/28/17) HEIGHT- FT: 5 IN: 6.00 K.689 VTE General Information Labs: Laboratory Tests 01/29 01/28 0510 1315 Hematology Hgb (14.1 - 18.0 g/dL) 9.9 L 11.9 L Hct (42.0 - 52.0 %) 29.6 L 35.1 L Plt Count (142 - 424 K/mm3) 219 216 Disclaimer The following section includes nursing documentation that has been pulled in for pharmacy review. Patient's VTE score: 1 Patient's VTE Risk: LOW RISK Clinical trial participant? No VTE prophylaxis NQF [id number] VTE prophylaxis ordered? Yes Type of prophylaxis/treatment: ICD at 0729
--- NOTE | 2017-01-29 07:34 | ACUTE CARE PROGRESS NOTE (QUA) ---
Progress Notes Subjective Date 01/29/17 Time 0732 Note PATIENT TELLS ME THIS MORNING HE DID NOT EAT VERY MUCH YESTERDAY EVENING. He reports one loose stool. This cannot be confirmed by nursing staff. The stool sample patient provided for stool testing was described as a well-formed stool. Patient awakens easily this morning. Lungs are distant. Heart has a regular rate and rhythm. Abdomen is thin and soft. Extremities have 1-2+ edema of the lower legs. Labs noted Care management is working on finding a place for the patient to go. He does not meet acute care criteria. Continue IV fluids for his mild acute kidney injury Objective Findings Last VS-Temp:98.4 B/P:133/59 Pulse:62 Resp:18 SaO2:94 ROOM AIR Last weight lbs:136 oz: [id number] Method:Digital Scales Laboratory Tests 01/29/17 0510: Sodium 141, Potassium 3.0 L, Chloride 104, Carbon Dioxide 29, BUN 22 H, Creatinine 1.9 H, Estimated Creat Clear 27 L, Estimated GFR (MDRD) 34, Glucose 85, Calcium 8.1 L, WBC 6.2, RBC 3.25 L, Hgb 9.9 L, Hct 29.6 L, MCV 91.1, RDW 14.5, Plt Count 219, MPV 7.9, Gran % 51.4, Gran # 3.2, Lymphocytes % 27.2, Monocytes % 10.8 H, Eosinophils % 10.1, Basophils % 0.6, Lymphocytes # 1.7, Monocytes # 0.7, Eosinophils # 0.6 H, Basophils # 0.0, PUBS MCHC 33.0, MCH 30.1 01/28/17 1315: Sodium 138, Potassium 3.6, Chloride 100, Carbon Dioxide 30, BUN 24 H, Creatinine 2.1 H, Estimated Creat Clear 24 L, Estimated GFR (MDRD) 30, Glucose 91, Calcium 8.7, Total Bilirubin 0.8, AST 19, ALT 11 L, Alkaline Phosphatase 103, Total Protein 7.2, Albumin 3.3 L, Globulin 3.9 H, Albumin/Globulin Ratio 0.8 L, WBC 7.6, RBC 3.86 L, Hgb 11.9 L, Hct 35.1 L, MCV 90.9, RDW 14.6, Plt Count 216, MPV 9.8, Gran % 63.4, Gran # 4.8, Lymphocytes % 20.7, Monocytes % 8.2 , Eosinophils % 6.8, Basophils % 0.9, Lymphocytes # 1.6, Monocytes # 0.6, Eosinophils # 0.5 H, Basophils # 0.1, PUBS MCHC 33.8, MCH 30.7 01/28/17 1310: Stl Aeromonas (PCR) NOT DETECTED, Stl Cyclospora species NOT DETECTED, Stool Rotavirus (PCR) NOT DETECTED, Stool Astrovirus (PCR) NOT DETECTED, Stool Campylobacter PCR NOT DETECTED, Stool Cryptosporidium PCR NOT DETECTED, Stl E. histolytica PCR NOT DETECTED, Stool Giardia Lamblia PCR NOT DETECTED, Stl P. shigelloides PCR NOT DETECTED, Stool Sapovirus (PCR) NOT DETECTED, Stool Vibrio (PCR) NOT DETECTED, Stl Vibrio cholerae PCR NOT DETECTED, Stl Norovirus GI/GII PCR NOT DETECTED, Adenovirus (PCR) NOT DETECTED, C. difficile Tox (PCR) NOT DETECTED, E. coli (PCR) NOT DETECTED, Salmonella (PCR) NOT DETECTED, Yersinia ( PCR) NOT DETECTED Assessment/Plan Problem List 1. Acute kidney injury 2. Diarrhea 3. Status post AAA (abdominal aortic aneurysm) repair Status: Acute 4. Pedal edema Patient condition Stable This inpt stay is expected to cross 2 MNs from start of care No at 0734
--- NOTE | 2017-01-29 07:46 | Discharge Summary ---
Demographics Admit date: 01/28/17 Discharge date: 01/30/17 Discharge diagnoses Problem List 1. Acute kidney injury 2. Diarrhea 3. Pedal edema 4. Status post AAA (abdominal aortic aneurysm) repair Status Acute History of present illness History of present illness 81-year-old male with recent hospitalization from December 05 to December 14 at the [facility] after being transferred from [facility] with a RIGHT cerebral hemorrhage. After a nine-day hospital stay at which also included a gastrointestinal workup with some type of colonic ulcer discovered the patient was discharged to [facility] in [place]. His daughter who provides most of the history states that's when diarrhea began. At discharge from diarrhea began and continue all he was staying at [facility] for retirement purposes. It is continued to this day now having diarrhea for approximately 6 weeks. Diarrhea however has increased in frequency and he has lost track of the number of bowel movements has had in the last 24 hours. He's developed some rectal discomfort from frequent bowel movements. Oddly enough patient presented the emergency department 2 days ago and was unable to produce a stool sample while in the emergency department. CT scan at that time showed constipation in the large intestine and possible early enteritis and small intestine. Patient's appetite has been poor. He is also developed swelling of his legs. He complains of cough but no shortness of breath. His long-time smoker with underlying chronic obstructive pulmonary disease. Patient also has peripheral arterial disease. In the office the patient looked weak and is having difficulty staying awake which was a change in his condition compared to 2 weeks prior when I had seen him. Patient had noticeable edema in the legs from the proximal shins to the ankles. He had poor skin turgor as well as color. Decision was made to admit for labs and IV fluids. Upon admission patient provided a well-formed stool for the diarrhea panel. Stool testing was performed and was negative for any infectious process. Patient had an additional bowel movement the night of admission that the patient described as being watery but staff could not confirm this. I believe the patient is having well-formed stools but is simply incontinent with bowel movements. On the seventh patient did develop frequent loose stools. Fiber supplementation was started I'm not sure whether he is actually able to properly care and cleaning himself at home due to his debilitated state. On admission he was found to have mild acute kidney injury with elevated creatinine to 2.1. After receiving IV fluids creatinine decreased to 1.9. After receiving IV fluids patient's potassium dropped as well and this was replaced orally and intravenously on the seventh. On the morning of the eighth patient refused oral potassium. Patient's edema improved on admission by keeping the legs elevated. On the day of discharge there was still 1+ edema from the mid shins to ankles. Patient still had days available from his previous stay at [facility] when he was rehabilitating from his stroke. Care management consult was placed and a bed was obtained at [facility]. Patient was discharged Rehab potential: Fair Prognosis: Fair Mental status: Below average Medications Medications: Discharge meds are as noted. Follow up Follow up in office in: AT DISCHARGE FROM [facility] with: Albaro Jackson MD at [phone]
--- NOTE | 2017-01-29 07:46 | Discharge Summary ---
Demographics Admit date: 01/28/17 Discharge date: 01/30/17 Discharge diagnoses Problem List 1. Acute kidney injury 2. Diarrhea 3. Pedal edema 4. Status post AAA (abdominal aortic aneurysm) repair Status Acute History of present illness History of present illness 81-year-old male with recent hospitalization from December 05 to December 14 at the [facility] after being transferred from [facility] with a RIGHT cerebral hemorrhage. After a nine-day hospital stay at which also included a gastrointestinal workup with some type of colonic ulcer discovered the patient was discharged to [facility] in [place]. His daughter who provides most of the history states that's when diarrhea began. At discharge from diarrhea began and continue all he was staying at [facility] for [facility] purposes. It is continued to this day now having diarrhea for approximately 6 weeks. Diarrhea however has increased in frequency and he has lost track of the number of bowel movements has had in the last 24 hours. He's developed some rectal discomfort from frequent bowel movements. Oddly enough patient presented the emergency department 2 days ago and was unable to produce a stool sample while in the emergency department. CT scan at that time showed constipation in the large intestine and possible early enteritis and small intestine. Patient's appetite has been poor. He is also developed swelling of his legs. He complains of cough but no shortness of breath. His long-time smoker with underlying chronic obstructive pulmonary disease. Patient also has peripheral arterial disease. In the office the patient looked weak and is having difficulty staying awake which was a change in his condition compared to 2 weeks prior when I had seen him. Patient had noticeable edema in the legs from the proximal shins to the ankles. He had poor skin turgor as well as color. Decision was made to admit for labs and IV fluids. Upon admission patient provided a well-formed stool for the diarrhea panel. Stool testing was performed and was negative for any infectious process. Patient had an additional bowel movement the night of admission that the patient described as being watery but staff could not confirm this. I believe the patient is having well-formed stools but is simply incontinent with bowel movements. On the seventh patient did develop frequent loose stools. Fiber supplementation was started I'm not sure whether he is actually able to properly care and cleaning himself at home due to his debilitated state. On admission he was found to have mild acute kidney injury with elevated creatinine to 2.1. After receiving IV fluids creatinine decreased to 1.9. After receiving IV fluids patient's potassium dropped as well and this was replaced orally and intravenously on the seventh. On the morning of the eighth patient refused oral potassium. Patient's edema improved on admission by keeping the legs elevated. On the day of discharge there was still 1+ edema from the mid shins to ankles. Patient still had days available from his previous stay at [facility] when he was rehabilitating from his stroke. Care management consult was placed and a bed was obtained at [facility]. Patient was discharged Rehab potential: Fair Prognosis: Fair Mental status: Below average Medications Medications: Discharge meds are as noted. Follow up Follow up in office in: AT DISCHARGE FROM [facility] with: Albaro Jackson MD at [phone]
[2017-01-29 07:53] VITALS: BP 114/56
[2017-01-29 14:03] VITALS: BP 114/56
[2017-01-29 16:03] VITALS: BP 120/54
[2017-01-29 19:56] VITALS: BP 136/69
[2017-01-29 20:34] VITALS: BP 136/69
[2017-01-30 04:13] VITALS: BP 136/76
[2017-01-30] MEDS ORDERED: METAMUCIL660 GM PO (06:08)
[2017-01-30] MEDS ORDERED: POTASSIUM CHLO10 ME3 PO (06:09)
[2017-01-30 08:35] VITALS: BP 136/76
== END 2017-01-30 08:35 ==
LOC: ICU 10:50 → 2ND 01-29 17:25
PROVIDERS: Family Medicine
DX: R19.7 Diarrhea, unspecified (principal); E86.0 Dehydration; N17.9 Acute kidney failure, unspecified; J44.9 Chronic obstructive pulmonary disease, unspecified; F17.210 Nicotine dependence, cigarettes, uncomplicated; I73.9 Peripheral vascular disease, unspecified; Z82.49 Family history of ischemic heart disease and other diseases of the circulatory system; I10 Essential (primary) hypertension; Z79.82 Long term (current) use of aspirin; Z79.899 Other long term (current) drug therapy; R60.9 Edema, unspecified; R29.810 Facial weakness; Z86.73 Personal history of transient ischemic attack (TIA), and cerebral infarction without residual deficits; R15.9 Full incontinence of feces
CPT/HCPCS: G0378

== ENCOUNTER 2017-02-07 19:38 | Inpatient (IN) | payer MEDICARE, OTHER ==
[~2017-02-07] VITALS: Ht 167.6 cm; Wt 57.7 kg
[~2017-02-07 19:38] MED LIST changes: +METAMUCIL660 GM PO; +POTASSIUM CHLO10 ME3 PO
[2017-02-07 19:42] VITALS: BP 100/59
--- OUTSIDE RECORDS SUMMARY | 2017-02-07 20:02 | External Medical Summary Rpt | Continuity of Care Document ---
Author Author Organization Address Unknown Phone Unavailable Care Team Providers Care Management Retail Intern Name Role Phone , Unavailable Unavailable EMS Current Medications Section EMS Allergies and Adverse Reactions EMS Past Medical History Medications Administered Section EMS Procedures Performed EMS Vital Signs EMS Patient Care Report Narrative D- Dispatched to residence for abdominal pain and swollen ankles C- Pt is a 81 year old male, advises he has had abdominal pain for 3 days, diarrhea and swollen feet and ankles. H- Pt was in the snf for rehab and released to come home 2 1/2 weeks ago. Pt is normally on Lasix, but pts physician did not send him home with lasix , family asked PCP for prescription but doctor advised he did not need it. S- pt has +2 pitting edema, abdominal pain and diarrhea A- NKDA M- not currently taking any medications P- hx COPD and aortic aneurysm L- pt has not been eating much, due to feeling bad and diarrhea x2 weeks E- Pt has had diarrhea for 2 weeks, no new medications A- ALS assessment was done, Pt is alert and oriented Vitals obtained,skin Pwd, pt feels weak, PERRL, pt advises he hurts in His abdomen and radiates to his back,not sever but hurts,no tenderness or distention, Pt advises no problem urinating, but has had diarrhea for 2 weeks Pt Pt has had Bilateral +2 pitting pedal edema x3 days. Pt has no other Complaints. R- vitals obtained, placed on 02 via nc at 2 lpm,placed on monitor Showing sinus at 67 bpm no ectopy 20 IV established in LAC with NS , prehospital labs drawn and blood sugar is 98. T- Pt was stood and walked with assistance to stretcher by doorway Pt was placed on stretcher, secured with straps x5 and moved to Unit. Pt was monitored and reassessed enroute, no change in pt condition,report was called to [facility] ER, upo arrival pt was taken to room 6, pt was moved to bed using bottom sheet, care and report was Turned over to Debra Kay RN M- Pt is being transported by ambulance due to weakness and Pain. Kristie Brown [facility]
--- OUTSIDE RECORDS SUMMARY | 2017-02-07 20:02 | External Medical Summary Rpt | Continuity of Care Document ---
Author Author Organization Address Unknown Phone Unavailable Care Team Providers Care Client Account Specialist Name Role Phone , Unavailable Unavailable EMS [...] and ankles. H- Pt was in the long term for rehab and released to come home [...] change in pt condition,report was called to [facility] ER, upo arrival pt was taken to room 6, pt was moved to bed using bottom sheet, care and report was Turned over to Debra Kay RN M- Pt is being transported by ambulance due to weakness and Pain. Kristie Brown [facility]
--- OUTSIDE RECORDS SUMMARY | 2017-02-07 20:02 | External Medical Summary Rpt | Continuity of Care Document ---
Author Author Organization Address Unknown Phone Unavailable Care Team Providers Care Stitch Bonding Machine Drawer In Name Role Phone , Unavailable Unavailable EMS [...] and ankles. H- Pt was in the group home for rehab and released to come home [...] change in pt condition,report was called to [facility] ER, upo arrival pt was taken to room 6, pt was moved to bed using bottom sheet, care and report was Turned over to Debra Kay RN M- Pt is being transported by ambulance due to weakness and Pain. Kristie Brown [facility]
--- OUTSIDE RECORDS SUMMARY | 2017-02-07 20:02 | External Medical Summary Rpt | Continuity of Care Document ---
Author Author Organization Address Unknown Phone Unavailable Care Team Providers Care Ophthalmic Medical Technologist Name Role Phone , Unavailable Unavailable EMS [...] and ankles. H- Pt was in the [facility] for rehab and released to come home [...] change in pt condition,report was called to [facility] ER, upo arrival pt was taken to room 6, pt was moved to bed using bottom sheet, care and report was Turned over to Debra Kay RN M- Pt is being transported by ambulance due to weakness and Pain. Kristie Brown [facility]
--- OUTSIDE RECORDS SUMMARY | 2017-02-07 20:04 | External Medical Summary Rpt | CCD ---
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 I71.4 Abdominal 12-20-2016 aortic aneurysm, without rupture K26.9 Duodenal 12-20-2016 ulcer, unspecified as acute or chronic, without hemorrhage or perforation K29.80 Duodenitis 12-20-2016 without bleeding M54.5 Low back 12-20-2016 pain N17.9 Acute 12-20-2016 kidney failure, unspecified N18.9 Chronic 12-20-2016 kidney disease, unspecified R40.2140 Coma scale, 12-20-2016 eyes open, spontaneous , unspecified time R40.2143 Coma scale, 12-20-2016 eyes open, spontaneous , at hospital admission R40.2220 Coma scale, 12-20-2016 best verbal response, incomprehen sible words, unspecified time R40.2253 Coma scale, 12-20-2016 best verbal response, oriented, at hospital admission R40.2350 Coma scale, 12-20-2016 best motor response, localizes pain, unspecified time R40.2363 Coma scale, 12-20-2016 best motor response, obeys commands, at hospital admission Z68.1 Body mass 12-20-2016 index (BMI) 19 or less, adult I62.9 Nontraumati 12-14-2016 c intracrania l hemorrhage, unspecified D64.9 ANEMIA, UNSPECIFIED G45.9 TRANSIENT CEREBRAL ISCHEMIC ATTACK, UNSPECIFIED I71.3 ABDOMINAL AORTIC ANEURYSM, RUPTURED M79.89 OTHER SPECIFIED SOFT TISSUE DISORDERS N28.9 DISORDER OF KIDNEY AND URETER, UNSPECIFIED N39.0 URINARY TRACT INFECTION, SITE NOT SPECIFIED R19.7 DIARRHEA, UNSPECIFIED R79.89 OTHER SPECIFIED ABNORMAL FINDINGS OF BLOOD CHEMISTRY Results Labs Lab Lab Date Result Refere Interp Status Commen Order Detail nces retati t Range on Antibiotic sensitivity studies (01-30-2017 06:19) Piperac 01-30-2 <= 4 complet illin/t 017 ug/ml ed azobact 06:19 am suscept ibility test by minimum inhibit ory concent ration Tobramy 01-30-2 <= 1 complet vee 017 ug/ml ed suscept 06:19 ibility test by minimum inhibit ory concent ration Trimeth 2 >= 320 complet oprim/s 017 ug/ml ed ulfamet 06:19 hoxazol e suscept ibility test by minimum inhibit ory concent ration Ampicil 2 >= 32 complet lorena/sul 017 ug/ml ed bactam 06:19 suscept ibility test by minimum inhibit ory concent ration Levoflo 01-30-2 <= 0.12 complet xacin 017 ug/ml ed suscept 06:19 ibility test by minimum inhibit ory concent ration Imipene 01-30-2 <= 0.25 complet m 017 ug/ml ed suscept 06:19 ibility test by minimum inhibit ory concent ration Gentami 01-30-2 <= 1 complet vee 017 ug/ml ed suscept 06:19 ibility test by minimum inhibit ory concent ration Nitrofu 01-30-2 <= 16 complet rantoin 017 ug/ml ed 06:19 suscept ibility test by minimum inhibit ory concent ration Cefepim 01-30-2 <= 1 complet e 017 ug/ml ed suscept 06:19 ibility test by minimum inhibit ory concent ration Ertapen 01-30-2 <= 0.5 complet em 017 ug/ml ed suscept 06:19 ibility test by minimum inhibit ory concent ration Extende = ug/ml complet d 017 ed spectru 06:19 m beta lactama se (ESBL) produci ng bacteri a suscept ibility test by minimum inhibit ory Cefazol <= 4 complet in 017 ug/ml ed suscept 06:19 ibility test by minimum inhibit ory concent ration Ceftria 2 <= 1 complet xone 017 ug/ml ed suscept 06:19 ibility test by minimum inhibit ory concent ration Ceftazi <= 1 complet dime/po 017 ug/ml ed tassium 06:19 clavula shandra suscept ibility test by minimum inhibit ory concent ration Amoxici = 16 complet llin/cl 017 ug/ml ed avulana 06:19 te suscept ibility test by minimum inhibit ory concent ration Ampicil >= 32 complet lorena 017 ug/ml ed suscept 06:19 ibility test by minimum inhibit ory concent ration Basic metabolic panel (01-29-2017 05:10) Serum = 141 136-145 complet sodium 017 mmoL/L ed measure 05:10 ment Serum = 3.0 3.5-5.1 complet potassi 017 mmoL/L ed um 05:10 measure ment Serum = 85 74-106 complet or 017 mg/dL ed plasma 05:10 glucose measure ment (mas Estimat = 34 >60 complet ed 017 ML/MIN ed glomeru 05:10 lar filtrat ion rate (GF Estimat = 27 50-200 complet ion of 017 ML/MIN ed creatin 05:10 ine renal clearan ce Serum = 1.9 0.70-1. complet or 017 mg/dL 30 ed plasma 05:10 creatin ine measure ment ( Carbon = 29 21.0-32 complet dioxide 017 mmoL/L .0 ed 05:10 measure ment Serum = 104 98-107 complet or 017 mmoL/L ed plasma 05:10 chlorid e measure ment (mo Serum = 8.1 8.5-10. complet or 017 mg/dL 1 ed plasma 05:10 calcium measure ment (mas Serum = 22 7-18 complet or 017 mg/dL ed plasma 05:10 urea nitroge n measure men CBC w auto diff (01-29-2017 05:10) Blood = 6.2 4.8-10. complet leukocy 017 K/MM3 8 ed regine 05:10 count (number /volume ) Automat = 0.0 0-0.2 complet ed 017 K/MM3 ed blood 05:10 basophi l count (count/ vo Automat = 14.5 11.5-17 complet ed 017 % .5 ed erythro 05:10 cyte distrib ution width Red = 3.25 4.6-6.2 complet blood 017 M/mm3 ed cell 05:10 count Blood = 219 142-424 complet platele 017 K/mm3 ed t count 05:10 Automat = 7.9 7.4-10. complet ed 017 fl 4 ed blood 05:10 platele t mean volume rub[place] % = 10.8 1.7-9.3 complet 017 % ed 05:10 Absolut = 0.7 0.1-1.0 complet e 017 K/mm3 ed monocyt 05:10 e count Automat = 91.1 82.2-97 complet ed 017 fl .8 ed erythro 05:10 cyte mean corpusc ular v Automat = 33.0 31.8-35 complet ed 017 g/dl .4 ed erythro 05:10 cyte mean corpusc ular h Mean = 30.1 27-31.2 complet corpusc 017 pg ed ular 05:10 hemoglo bin (MCH) determ Lymphoc = 27.2 10-50 complet yte 017 % ed count, 05:10 blood, automat ed Absolut = 1.7 0.7-4.5 complet e 017 K/mm3 ed lymphoc 05:10 yte count Blood = 9.9 14.1-18 complet hemoglo 017 g/dL .0 ed bin 05:10 measure ment (mass/v olum Blood = 29.6 42.0-52 complet hematoc 017 % .0 ed rit 05:10 (volume fractio n) Granulo = 51.4 37.0-80 complet cyte 017 % .0 ed percent 05:10 age Blood = 3.2 1.3-8.0 complet granulo 017 K/mm3 ed cytes 05:10 automat ed count (numb Automat = 10.1 0.1-12. complet ed 017 % 0 ed blood 05:10 eosinop hils/10 0 leukocy t Automat = 0.6 0.0-0.4 complet ed 017 K/mm3 ed blood 05:10 eosinop hil count Baso % = 0.6 % 0.1-2.0 complet 017 ed 05:10 CBC w auto diff (01-28-2017 13:15) Blood = 216 142-424 complet platele 017 K/mm3 ed t count 13:15 Automat = 9.8 7.4-10. complet ed 017 fl 4 ed blood 13:15 platele t mean volume [place] % = 8.2 % 1.7-9.3 complet 017 ed 13:15 Absolut = 0.6 0.1-1.0 complet e 017 K/mm3 ed monocyt 13:15 e count Automat = 90.9 82.2-97 complet ed 017 fl .8 ed erythro 13:15 cyte mean corpusc ular v Automat = 33.8 31.8-35 complet ed 017 g/dl .4 ed erythro 13:15 cyte mean corpusc ular h Mean = 30.7 27-31.2 complet corpusc 017 pg ed ular 13:15 hemoglo bin (MCH) determ Lymphoc = 20.7 10-50 complet yte 017 % ed count, 13:15 blood, automat ed Absolut = 1.6 0.7-4.5 complet e 017 K/mm3 ed lymphoc 13:15 yte count Blood = 11.9 14.1-18 complet hemoglo 017 g/dL .0 ed bin 13:15 measure ment (mass/v olum Blood = 35.1 42.0-52 complet hematoc 017 % .0 ed rit 13:15 (volume fractio n) Granulo = 63.4 37.0-80 complet cyte 017 % .0 ed percent 13:15 age Blood = 4.8 1.3-8.0 complet granulo 017 K/mm3 ed cytes 13:15 automat ed count (numb Automat = 6.8 % 0.1-12. complet ed 017 0 ed blood 13:15 eosinop hils/10 0 leukocy t Automat = 0.5 0.0-0.4 complet ed 017 K/mm3 ed blood 13:15 eosinop hil count Baso % = 0.9 % 0.1-2.0 complet 017 ed 13:15 Blood = 7.6 4.8-10. complet leukocy 017 K/MM3 8 ed regine 13:15 count (number /volume ) Automat = 14.6 11.5-17 complet ed 017 % .5 ed erythro 13:15 cyte distrib ution width Red = 3.86 4.6-6.2 complet blood 017 M/mm3 ed cell 13:15 count Automat = 0.1 0-0.2 complet ed 017 K/MM3 ed blood 13:15 basophi l count (count/ vo Comprehensive metabolic panel (01-28-2017 13:15) Protein = 7.2 6.4-8.2 complet total 017 gm/dL ed ser/darron 13:15 s ALT = 11 12-78 complet (SGPT) 017 U/L ed ser/darron 13:15 s Serum = 19 15-37 complet or 017 U/L ed plasma 13:15 asparta te aminotr ansfera Serum = 138 136-145 complet sodium 017 mmoL/L ed measure 13:15 ment Serum = 3.6 3.5-5.1 complet potassi 017 mmoL/L ed um 13:15 measure ment Serum = 91 74-106 complet or 017 mg/dL ed plasma 13:15 glucose measure ment (mas Serum = 3.9 1.3-3.2 complet globuli 017 gm/dL ed n 13:15 measure ment (mass/v olume) Estimat = 30 >60 complet ed 017 ML/MIN ed glomeru 13:15 lar filtrat ion rate (GF Estimat = 24 50-200 complet ion of 017 ML/MIN ed creatin 13:15 ine renal clearan ce Serum = 2.1 0.70-1. complet or 017 mg/dL 30 ed plasma 13:15 creatin ine measure ment ( Carbon = 30 21.0-32 complet dioxide 017 mmoL/L .0 ed 13:15 measure ment Serum = 100 98-107 complet or 017 mmoL/L ed plasma 13:15 chlorid e measure ment (mo Serum = 8.7 8.5-10. complet or 017 mg/dL 1 ed plasma 13:15 calcium measure ment (mas Serum = 24 7-18 complet or 017 mg/dL ed plasma 13:15 urea nitroge n measure men Serum = 0.8 0.2-1.0 complet or 017 mg/dL ed plasma 13:15 total bilirub in measure m Serum = 103 46-116 complet or 017 U/L ed plasma 13:15 alkalin e phospha tase ruben Serum = 3.3 3.4-5.0 complet or 017 gm/dL ed plasma 13:15 albumin measure ment (mas Serum = 0.8 1.1-1.8 complet or 017 ed plasma 13:15 albumin /globul in mass ra DIARRHEA PANEL,PCR (01-28-2017 13:10) Stool NOT NOT complet Vibrio 017 DETECTE DETECTE ed species 13:10 D NOT DETECTE identif D L ication by o Vibrio NOT NOT complet cholera 017 DETECTE DETECTE ed e DNA 13:10 D NOT detecti DETECTE on by D L probe a Escheri NOT NOT complet doreen 017 DETECTE DETECTE ed coli 13:10 D NOT shiga-l DETECTE terry D L toxin STX1 a Stool NOT NOT complet adenovi 017 DETECTE DETECTE ed kyung 40 13:10 D NOT and 41 DETECTE antigen D L assay Vibrio NOT NOT complet species 017 DETECTE DETECTE ed 13:10 D NOT nucleic DETECTE acid D L assay by PCR E coli NOT NOT complet detecti 017 DETECTE DETECTE ed on 13:10 D NOT DETECTE D L Caliciv NOT NOT complet irus ID 017 DETECTE DETECTE ed 13:10 D NOT DETECTE D L Salmone NOT NOT complet lla 017 DETECTE DETECTE ed species 13:10 D NOT DNA DETECTE detecti D L on by prob Rotavir NOT NOT complet us RNA 017 DETECTE DETECTE ed detecti 13:10 D NOT on by DETECTE probe D L and tar Stool NOT NOT complet Plesiom 017 DETECTE DETECTE ed onas 13:10 D NOT shigell DETECTE oides D L DNA detec Stool NOT NOT complet norovir 017 DETECTE DETECTE ed us 13:10 D NOT assay DETECTE D L Stool NOT NOT complet Giardia 017 DETECTE DETECTE ed 13:10 D NOT lamblia DETECTE D L antigen detecti on Entamoe NOT NOT complet ba 017 DETECTE DETECTE ed histoly 13:10 D NOT kendra DETECTE detecti D L on Escheri NOT NOT complet doreen 017 DETECTE DETECTE ed coli 13:10 D NOT O157 DETECTE stool D L culture Escheri NOT NOT complet doreen 017 DETECTE DETECTE ed coli 13:10 D NOT Shiga-l DETECTE terry D L toxin 1 assa Escheri NOT NOT complet doreen 017 DETECTE DETECTE ed coli 13:10 D NOT detecti DETECTE on D L Cyclosp NOT NOT complet ora 017 DETECTE DETECTE ed cayetan 13:10 D NOT esis DETECTE detecti D L on Cryptos NOT NOT complet poridiu 017 DETECTE DETECTE ed m ag 13:10 D NOT detecti DETECTE on D L Stool NOT NOT complet Clostri 017 DETECTE DETECTE ed dium 13:10 D NOT diffici DETECTE le A D L and B toxi Campylo NOT NOT complet bacter 017 DETECTE DETECTE ed antibod 13:10 D NOT y assay DETECTE D L Astrovi NOT NOT complet kyung 017 DETECTE DETECTE ed detecti 13:10 D NOT on DETECTE D L Aeromon NOT NOT complet as 017 DETECTE DETECTE ed salmoni 13:10 D NOT mariel DETECTE detecti D L on Urine culture (01-26-2017 12:05) Urine [id number] complet culture 017 07 ed 12:05 Escheri doreen coli SCT EC ESCHERI DOREEN COLI L Urinalysis with microscopy (01-26-2017 12:05) Urine 20 [...] CLOUDY ed nce 12:05 L determi nation CBC w auto diff (01-26-2017 09:45) Automat = 0.0 0-0.2 complet ed 017 K/MM3 ed blood 09:45 basophi l count (count/ vo Baso % = 0.4 % 0.1-2.0 complet 017 ed 09:45 Automat = 0.4 0.0-0.4 complet ed 017 K/mm3 ed blood 09:45 eosinop hil count Automat = 5.0 % 0.1-12. complet ed 017 0 ed blood 09:45 eosinop hils/10 0 leukocy t Blood = 6.0 1.3-8.0 complet granulo 017 K/mm3 ed cytes 09:45 automat ed count (numb Granulo = 67.5 37.0-80 complet cyte 017 % .0 ed percent 09:45 age Blood = 33.4 42.0-52 complet hematoc 017 % .0 ed rit 09:45 (volume fractio n) Blood = 11.0 14.1-18 complet hemoglo 017 g/dL .0 ed bin 09:45 measure ment (mass/v olum Absolut = 1.7 0.7-4.5 complet e 017 K/mm3 ed lymphoc 09:45 yte count Lymphoc = 18.6 10-50 complet yte 017 % ed count, 09:45 blood, automat ed Mean = 30.7 27-31.2 complet corpusc 017 pg ed ular 09:45 hemoglo bin (MCH) determ Automat = 33.0 31.8-35 complet ed 017 g/dl .4 ed erythro 09:45 cyte mean corpusc ular h Automat = 93.1 82.2-97 complet ed 017 fl .8 ed erythro 09:45 cyte mean corpusc ular v Absolut = 0.8 0.1-1.0 complet e 017 K/mm3 ed monocyt 09:45 e count [place] % = 8.5 % 1.7-9.3 complet 017 ed 09:45 Automat = 7.8 7.4-10. complet ed 017 fl 4 ed blood 09:45 platele t mean volume ruben Blood = 192 142-424 complet platele 017 K/mm3 ed t count 09:45 Red = 3.59 4.6-6.2 complet blood 017 M/mm3 ed cell 09:45 count Automat = 14.8 11.5-17 complet ed 017 % .5 ed erythro 09:45 cyte distrib ution width Blood = 8.9 4.8-10. complet leukocy 017 K/MM3 8 ed regine 09:45 count (number /volume ) Serum or plasma troponin i.cardiac measu (01-26-2017 [...] 017 mmoL/L ed measure 09:45 ment Serum 2 = 4.1 3.5-5.1 complet potassi 017 mmoL/L ed um 09:45 measure ment Serum = 87 74-106 complet or 017 mg/dL ed plasma 09:45 glucose measure ment (mas Serum 2 = 4.2 1.3-3.2 complet globuli 017 gm/dL [...] plasma 09:45 albumin /globul in mass ra Magnesium SerPl-mCnc (12-14-2016 09:33) Magnesi 2.0 1.9-2.4 complet um 017 mg/dL ed SerPl-m 09:33 Cnc Magnesium SerPl-mCnc (12-05-2016 15:38) Magnesi 2.3 1.9-2.4 complet um 017 mg/dL ed SerPl-m 15:38 Cnc Phosphate SerPl-mCnc (12-05-2016 15:38) Phospha 3.1 2.5-4.5 complet te 017 mg/dL ed SerPl-m 15:38 Cnc
--- OUTSIDE RECORDS SUMMARY | 2017-02-07 20:04 | External Medical Summary Rpt | CCD ---
Author Author , PAULO Organization PAULO Address Unknown Phone [email or web address] Purpose Continuity of Care Document - 12-05-2016 [...] blood 05:10 platele t mean volume ruben [place] % = 10.8 1.7-9.3 complet 017 % [...] blood 13:15 platele t mean volume ruben [place] % = 8.2 % 1.7-9.3 complet 017 [...] 7.2 6.4-8.2 complet total 017 gm/dL ed ser/darrno 13:15 s ALT = 11 12-78 complet [...] L on Urine culture (01-26-2017 12:05) Urine [id number] complet culture 017 07 ed 12:05 Escheri [...] 017 K/mm3 ed monocyt 09:45 e count [place] % = 8.5 % 1.7-9.3 complet 017 [...]
--- OUTSIDE RECORDS SUMMARY | 2017-02-07 20:05 | External Medical Summary Rpt | CCD ---
Author Author , YEIMY BATES Address Unknown Phone [email or web address] Immunization Name Date Rout CVX Reac Dose Comm Prov Is Faci e tion ent ider Refu lity Give sed n PPV2 07-1 33 0.5 Hist [facility] No [facility] 3 1-20 mL oric 1 1 15 al Info rmat ion - Sour ce Unsp ecif ied
--- OUTSIDE RECORDS SUMMARY | 2017-02-07 20:05 | External Medical Summary Rpt ---
Author Author [employer], [employer] Organization [employer] Address Unknown Phone Unavailable Results CBC W Auto Differential panel in Blood Observa Value Referen Units Interpr Notes Date tion ce etation Range Basophils 0 - 0.2 K/MM3 Normal No Jan 7 informati 2017 5:10 [#/volume on in AM ] in source Blood by data Automated count Basophils 0.1 - 2.0 % Normal No Jan 7 /100 informati 2017 5:10 leukocyte on in AM s in source Blood by data Automated count Eosinophi 0.0 - 0.4 K/mm3 High No Jan 7 ls informati 2017 5:10 [#/volume on in AM ] in source Blood by data Automated count Eosinophi 0.1 - % Normal No Jan 7 ls/100 12.0 informati 2017 5:10 leukocyte on in AM s in source Blood by data Automated count Granulocy 1.3 - 8.0 K/mm3 Normal No Jan 7 regine informati 2017 5:10 [#/volume on in AM ] in source Blood by data Automated count Granulocy 37.0 - % Normal No Jan 7 regine/100 80.0 informati 2017 5:10 leukocyte on in AM s in source Blood by data Automated count Hematocri 42.0 - % Low No Jan 7 t [Volume 52.0 informati 2017 5:10 on in AM Fraction] source of Blood data Hemoglobi 14.1 - g/dL Low No Jan 7 n 18.0 informati 2017 5:10 [Mass/vol on in AM ume] in source Blood data Lymphocyt 0.7 - 4.5 K/mm3 Normal No Jan 7 es informati 2017 5:10 [#/volume on in AM ] in source Unspecifi data ed specimen by Automated count Lymphocyt 10 - 50 % Normal No Jan 7 es informati 2017 5:10 [#/volume on in AM ] in source Unspecifi data ed specimen by Automated count Erythrocy 27 - 31.2 pg Normal No Jan 7 te mean informati 2017 5:10 corpuscul on in AM ar source hemoglobi data n [Entitic mass] Erythrocy 31.8 - g/dl Normal No Jan 29 te mean 35.4 informati 2016 5:10 corpuscul on in AM ar source hemoglobi data n concentra tion [Mass/vol ume] by Automated count Erythrocy 82.2 - fl Normal No Jan 29 te mean 97.8 informati 2016 5:10 corpuscul on in AM ar volume source [Entitic data volume] by Automated count Monocytes 0.1 - 1.0 K/mm3 Normal No Jan 29 informati 2016 5:10 [#/volume on in AM ] in source Blood by data Automated count Monocytes 1.7 - 9.3 % High No Jan 29 /100 informati 2016 5:10 leukocyte on in AM s in source Blood by data Automated count Platelet 7.4 - fl Normal No Jan 29 mean 10.4 informati 2016 5:10 volume on in AM [Entitic source volume] data in Blood by Automated count Platelets 142 - 424 K/mm3 Normal No Jan 29 informati 2016 5:10 [#/volume on in AM ] in source Blood data Erythrocy 4.6 - 6.2 M/mm3 Low No Jan 29 regine informati 2017 5:10 [#/volume on in AM ] in source Amniotic data fluid Erythrocy 11.5 - % Normal No Jan 29 te 17.5 informati 2016 5:10 distribut on in AM ion width source [Entitic data volume] by Automated count Leukocyte 4.8 - K/MM3 Normal No Jan 29 s 10.8 informati 2016 5:10 [#/volume on in AM ] in source Blood data Basic metabolic panel in Blood Observa Value Referen Units Interpr Notes Date tion ce etation Range Urea 7 - 18 mg/dL High No Jan 29 nitrogen informati 2016 5:10 [Mass/vol on in AM ume] in source Serum or data Plasma Calcium 8.5 - mg/dL Low No Jan 29 [Mass/vol 10.1 informati 2016 5:10 ume] in on in AM Serum or source Plasma data Chloride 98 - 107 mmoL/L Normal No Jan 29 [Moles/vo informati 2016 5:10 lume] in on in AM Serum or source Plasma data Carbon 21.0 - mmoL/L Normal Jan 29 dioxide, 32.0 informati 2017 5:10 total on in AM [Moles/vo source lume] in data Serum or Plasma Creatinin 0.70 - mg/dL High No Jan 7 e 1.30 informati 2017 5:10 [Mass/vol on in AM ume] in source Serum or data Plasma Creatinin 50 - 200 ML/MIN Low No Jan 7 e renal informati 2016 5:10 clearance on in AM source predicted data by Cockcroft -Gault formula Estimated >60 ML/MIN No REFERENCE Jan 7 informati RANGE: 2017 5:10 glomerula on in >60 AM r source ML/MIN/1. filtratio data 73 SQUARE n rate METERSIf (GF this patient is -A merican, then multiply theresult by 1.210. Glucose 74 - 106 mg/dL Normal No Jan 29 [Mass/vol informati 2016 5:10 ume] in on in AM Serum or source Plasma data Potassium 3.5 - 5.1 mmoL/L Low Jan 29 2016 5:10 [Moles/vo CRITICAL AM lume] in RESULTS Serum or Plasma RESU LTS CALLED TO: [facility] 01/29[facility]17 0630 Ez Ramos e Sodium 136 - 145 mmoL/L Normal No Jan 29 [Moles/vo informati 2016 5:10 lume] in on in AM Serum or source Plasma data Comprehensive metabolic 2000 panel in Serum or Plasma Observa Value Referen Units Interpr Notes Date tion ce etation Range Albumin/G 1.1 - 1.8 No Low No Jan 28 lobulin informati informati 2016 1:15 [Mass on in on in PM ratio] in source source Serum or data data Plasma Albumin 3.4 - 5.0 gm/dL Low No Jan 28 [Mass/vol informati 2016 1:15 ume] in on in PM Serum or source Plasma data Alkaline 46 - 116 U/L Normal No Jan 28 phosphata informati 2016 1:15 se on in PM [Enzymati source c data activity/ volume] in Serum or Plasma Bilirubin 0.2 - 1.0 mg/dL Normal No Jan 28 .total informati 2016 1:15 [Mass/vol on in PM ume] in source Serum or data Plasma Urea 7 - 18 mg/dL High No Jan 28 nitrogen informati 2016 1:15 [Mass/vol on in PM ume] in source Serum or data Plasma Calcium 8.5 - mg/dL Normal No Jan 28 [Mass/vol 10.1 informati 2016 1:15 ume] in on in PM Serum or source Plasma data Chloride 98 - 107 mmoL/L Normal No Jan 28 [Moles/vo informati 2016 1:15 lume] in on in PM Serum or source Plasma data Carbon 21.0 - mmoL/L Normal No Jan 28 dioxide, 32.0 informati 2016 1:15 total on in PM [Moles/vo source lume] in data Serum or Plasma Creatinin 0.70 - mg/dL High No Jan 28 e 1.30 informati 2016 1:15 [Mass/vol on in PM ume] in source Serum or data Plasma Creatinin 50 - 200 ML/MIN Low No Jan 28 e renal informati 2016 1:15 clearance on in PM source predicted data by Cockcroft -Gault formula Estimated >60 ML/MIN No REFERENCE Jan 28 informati RANGE: 2017 1:15 glomerula on in >60 PM r source ML/MIN/1. filtratio data 73 SQUARE n rate METERSIf (GF this patient is -A merican, then multiply theresult by 1.210. Globulin 1.3 - 3.2 gm/dL High No Jan 28 [Mass/vol informati 2016 1:15 ume] in on in PM Serum source data Glucose 74 - 106 mg/dL Normal No Jan 28 [Mass/vol informati 2016 1:15 ume] in on in PM Serum or source Plasma data Potassium 3.5 - 5.1 mmoL/L Normal No Jan 28 informati 2016 1:15 [Moles/vo on in PM lume] in source Serum or data Plasma Sodium 136 - 145 mmoL/L Normal No Jan 28 [Moles/vo informati 2016 1:15 lume] in on in PM Serum or source Plasma data Aspartate 15 - 37 U/L No No Jan 28 informati informati 2017 1:15 aminotran on in on in PM sferase source source [Enzymati data data c activity/ volume] in Serum or Plasma Alanine 12 - 78 U/L Low No Jan 28 aminotran informati 2016 1:15 sferase on in PM [Enzymati source c data activity/ volume] in Serum or Plasma Protein 6.4 - 8.2 gm/dL Normal No Jan 6 [Mass/vol informati 2016 1:15 ume] in on in PM Serum or source Plasma data CBC W Auto Differential panel in Blood Observa Value Referen Units Interpr Notes Date tion ce etation Range Basophils 0 - 0.2 K/MM3 Normal No Jan 6 inform2016 1:15 [#/volume on in PM ] in source Blood by data Automated count Basophils 0.1 - 2.0 % Normal No Jan 6 /100 informati 2016 1:15 leukocyte on in PM s in source Blood by data Automated count Eosinophi 0.0 - 0.4 K/mm3 High No Jan 6 ls informati 2016 1:15 [#/volume on in PM ] in source Blood by data Automated count Eosinophi 0.1 - % Normal No Jan 6 ls/100 12.0 informati 2016 1:15 leukocyte on in PM s in source Blood by data Automated count Granulocy 1.3 - 8.0 K/mm3 Normal No Jan 6 regine informati 2016 1:15 [#/volume on in PM ] in source Blood by data Automated count Granulocy 37.0 - % Normal No Jan 6 regine/100 80.0 informati 2016 1:15 leukocyte on in PM s in source Blood by data Automated count Hematocri 42.0 - % Low No Jan 6 t [Volume 52.0 ati 2016 1:15 on in PM Fraction] source of Blood data Hemoglobi 14.1 - g/dL Low No Jan 6 n 18.0 informati 2016 1:15 [Mass/vol on in PM ume] in source Blood data Lymphocyt 0.7 - 4.5 K/mm3 Normal No Jan 6 es informati 2016 1:15 [#/volume on in PM ] in source Unspecifi data ed specimen by Automated count Lymphocyt 10 - 50 % Normal No Jan 6 es informati 2016 1:15 [#/volume on in PM ] in source Unspecifi data ed specimen by Automated count Erythrocy 27 - 31.2 pg Normal No Jan 6 te mean informati 2016 1:15 corpuscul on in PM ar source hemoglobi data n [Entitic mass] Erythrocy 31.8 - g/dl Normal No Jan 6 te mean 35.4 informati 2016 1:15 corpuscul on in PM ar source hemoglobi data n concentra tion [Mass/vol ume] by Automated count Erythrocy 82.2 - fl Normal No Nov 6 te mean 97.8 informati 2016 1:15 corpuscul on in PM ar volume source [Entitic data volume] by Automated count Monocytes 0.1 - 1.0 K/mm3 Normal No Nov 6 informati 2016 1:15 [#/volume on in PM ] in source Blood by data Automated count Monocytes 1.7 - 9.3 % Normal No Nov 6 /100 informati 2016 1:15 leukocyte on in PM s in source Blood by data Automated count Platelet 7.4 - fl Normal No Nov 6 mean 10.4 informati 2016 1:15 volume on in PM [Entitic source volume] data in Blood by Automated count Platelets 142 - 424 K/mm3 Normal No Nov 6 informati 2016 1:15 [#/volume on in PM ] in source Blood data Erythrocy 4.6 - 6.2 M/mm3 Low No Nov 6 regine informati 2016 1:15 [#/volume on in PM ] in source Amniotic data fluid Erythrocy 11.5 - % Normal No Nov 6 te 17.5 informati 2016 1:15 distribut on in PM ion width source [Entitic data volume] by Automated count Leukocyte 4.8 - K/MM3 Normal No Nov 6 s 10.8 informati 2016 1:15 [#/volume on in PM ] in source Blood data DIARRHEA PANEL,PCR Observa Value Referen Units Interpr Notes Date tion ce etation Range Adenovi NOT NOT No No No Nov 6 kyung DETECTE DETECTE informa informa informa 2017 40+41 D tion in tion in tion in 1:10 PM Ag source source source [Presen data data data ce] in Stool Aeromon NOT NOT No No No Nov 6 as DETECTE DETECTE informa informa informa 2016 salmoni D tion in tion in tion in 1:10 PM mariel source source source [Presen data data data ce] in Unspeci fied specime n Astrovi NOT NOT No No No Nov 6 kyung DETECTE DETECTE informa informa informa 2016 [Presen D tion in tion in tion in 1:10 PM ce] in source source source Stool data data data by Electro n microsc opy Campylo NOT NOT No No No Nov 6 bacter DETECTE DETECTE informa informa informa 2017 sp Ab D tion in tion in tion in 1:10 PM [Presen source source source ce] in data data data Serum Clostri NOT NOT No No No Nov 6 dium DETECTE DETECTE informa informa informa 2017 diffici D tion in tion in tion in 1:10 PM le source source source toxin data data data A+B [Presen ce] in Stool Cryptos NOT NOT No No No Nov 6 poridiu DETECTE DETECTE informa informa informa 2017 m sp Ag D tion in tion in tion in 1:10 PM source source source [Presen data data data ce] in Unspeci fied specime n Cyclosp NOT NOT No No No Nov 6 ora DETECTE DETECTE informa informa informa 2017 cayetan D tion in tion in tion in 1:10 PM aydin source source source [Presen data data data ce] in Unspeci fied specime n Escheri NOT NOT No No No Nov 6 doreen DETECTE DETECTE informa informa informa 2017 coli D tion in tion in tion in 1:10 PM [Presen source source source ce] in data data data Unspeci fied specime n by Culture FDA method Escheri NOT NOT No No No Nov 6 doreen DETECTE DETECTE informa informa informa 2017 coli D tion in tion in tion in 1:10 PM [Presen source source source ce] in data data data Unspeci fied specime n by Culture FDA method Escheri NOT NOT No No No Nov 6 doreen DETECTE DETECTE informa informa informa 2017 coli D tion in tion in tion in 1:10 PM Shiga-l source source source terry data data data toxin 1 assa Escheri NOT NOT No No No Nov 6 doreen DETECTE DETECTE informa informa informa 2017 coli D tion in tion in tion in 1:10 PM [id number] source source source data data data [Presen ce] in Stool by Organis m specifi c culture Entamoe NOT NOT No No No Nov 6 ba DETECTE DETECTE informa informa informa 2017 histoly D tion in tion in tion in 1:10 PM kendra source source source [Presen data data data ce] in Stool by Trichro me stain Giardia NOT NOT No No No Nov 6 DETECTE DETECTE informa informa informa 2017 lamblia D tion in tion in tion in 1:10 PM Ag source source source [Presen data data data ce] in Stool Norovir NOT NOT No No No Nov 6 us Ag DETECTE DETECTE informa informa informa 2017 [Presen D tion in tion in tion in 1:10 PM ce] in source source source Stool data data data Stool NOT NOT No No No Nov 6 Plesiom DETECTE DETECTE informa informa informa 2017 onas D tion in tion in tion in 1:10 PM shigell source source source oides data data data DNA detec Rotavir NOT NOT No No No Nov 6 us RNA DETECTE DETECTE informa informa informa 2017 detecti D tion in tion in tion in 1:10 PM on by source source source probe data data data and tar Salmone NOT NOT No No No Nov 6 lla sp DETECTE DETECTE informa informa informa 2017 DNA D tion in tion in tion in 1:10 PM [Identi source source source fier] data data data in Unspeci fied specime n by Probe & target amplifi cation method Caliciv NOT NOT No No No Nov 6 irus DETECTE DETECTE informa informa informa 2017 [Identi D tion in tion in tion in 1:10 PM fier] source source source in data data data Stool by Electro n microsc opy Escheri NOT NOT No No No Nov 6 doreen DETECTE DETECTE informa informa informa 2016 coli D tion in tion in tion in 1:10 PM [Presen source source source ce] in data data data Unspeci fied specime n by Culture FDA method Escheri NOT NOT No No No Nov 6 doreen DETECTE DETECTE informa informa informa 2017 coli D tion in tion in tion in 1:10 PM SXT source source source gene+H7 data data data gene [Identi fier] in Unspeci fied specime n by Probe & target amplifi cation method Vibrio NOT NOT No No No Nov 6 cholera DETECTE DETECTE informa informa informa 2017 e DNA D tion in tion in tion in 1:10 PM [Presen source source source ce] in data data data Unspeci fied specime n by Probe & target amplifi cation method Vibrio NOT NOT No No No Nov 6 sp DNA DETECTE DETECTE informa informa informa 2016 [Identi D tion in tion in tion in 1:10 PM fier] source source source in data data data Unspeci fied specime n by Probe & target amplifi cation method Vibrio NOT NOT No No No Nov 6 sp DETECTE DETECTE informa informa informa 2016 identif D tion in tion in tion in 1:10 PM ied in source source source Stool data data data by Organis m specifi c culture CBC W Auto Differential panel in Blood Observa Value Referen Units Interpr Notes Date tion ce etation Range Basophils 0 - 0.2 K/MM3 Normal No Nov 4 informati 2017 9:45 [#/volume on in AM ] in source Blood by data Automated count Basophils 0.1 - 2.0 % Normal No Nov 4 /100 informati 2017 9:45 leukocyte on in AM s in source Blood by data Automated count Eosinophi 0.0 - 0.4 K/mm3 Normal No Nov 4 ls informati 2017 9:45 [#/volume on in AM ] in source Blood by data Automated count Eosinophi 0.1 - % Normal No Nov 4 ls/100 12.0 informati 2017 9:45 leukocyte on in AM s in source Blood by data Automated count Granulocy 1.3 - 8.0 K/mm3 Normal No Nov 4 regine informati 2017 9:45 [#/volume on in AM ] in source Blood by data Automated count Granulocy 37.0 - % Normal No Nov 4 regine/100 80.0 informati 2016 9:45 leukocyte on in AM s in source Blood by data Automated count Hematocri 42.0 - % Low No Nov 4 t [Volume 52.0 informati 2017 9:45 on in AM Fraction] source of Blood data Hemoglobi 14.1 - g/dL Low No Nov 4 n 18.0 informati 2016 9:45 [Mass/vol on in AM ume] in source Blood data Lymphocyt 0.7 - 4.5 K/mm3 Normal No Nov 4 es informati 2017 9:45 [#/volume on in AM ] in source Unspecifi data ed specimen by Automated count Lymphocyt 10 - 50 % Normal No Nov 4 es informati 2016 9:45 [#/volume on in AM ] in source Unspecifi data ed specimen by Automated count Erythrocy 27 - 31.2 pg Normal No Jan 26 te mean informati 2016 9:45 corpuscul on [...] 1.7 - 9.3 % Normal No Jan 4 /100 informati [...] Low No Sep 13 lobulin informati informati 2017 [Mass on in on in 12:55 PM [...] mg/dL High No Sep 13 e 1.30 inform2016 [Mass/vol on in 12:55 PM ume] in [...] - 37 U/L Low No Sep 13 2016 aminotran on in 12:55 PM sferase source [...] 2.0 % Normal No Sep 13 /100 inform 2017 leukocyte on in 12:55 PM s in [...] % Normal No Sep 13 regine/100 80.0 informati 2016 leukocyte on in 12:55 PM s in source Blood by data Automated count Hematocri 42.0 - % Normal No Sep 13 t [Volume 52.0 informati 2017 on in 12:55 PM Fraction] source of Blood data Hemoglobi 14.1 - g/dL No No Sep 13 n 18.0 informati [email or web address] [Mass/vol on in on in 12:55 PM ume] in source source Blood data data Lymphocyt 0.7 - 4.5 K/mm3 Normal No Sep 13 es inform2016 [#/volume on in 12:55 PM ] in source Unspecifi data ed specimen by Automated count Lymphocyt 10 - 50 % Normal No Sep 13 es inform2016 [#/volume on in 12:55 PM ] in source Unspecifi data ed specimen by Automated count Erythrocy 27 - 31.2 pg Normal No Sep 13 te mean [email or web address] corpuscul on in 12:55 PM ar source hemoglobi data n [Entitic mass] Erythrocy 31.8 - g/dl Normal No Sep 13 te mean 35.4 inform2016 corpuscul on in [...] M/mm3 Normal No Sep 13 regine informati 2016 [#/volume on in 12:55 PM ] in source Amniotic data fluid Erythrocy 11.5 - % Normal No Sep 13 te 17.5 informati 2016 distribut on in 12:55 PM ion width source [Entitic data volume] by Automated count Leukocyte 4.8 - K/MM3 Normal No Sep 13 s 10.8 informati 2016 [#/volume on in 12:55 PM ] in source Blood data
--- OUTSIDE RECORDS SUMMARY | 2017-02-07 20:05 | External Medical Summary Rpt ---
[...] Serum or Plasma RESU LTS CALLED TO: [facility] 01/29/17 0630 Ez Ramos e Sodium [...]
--- OUTSIDE RECORDS SUMMARY | 2017-02-07 20:05 | External Medical Summary Rpt | CCD ---
Author Author , YEIMY BATES Address Unknown Phone [email or web address] Immunization Name Date Rout CVX Reac Dose Comm Prov Is Faci e tion ent ider Refu lity Give sed n PPV2 07-1 33 0.5 Hist [facility] No [facility] 3 1-20 mL oric 1 1 15 al Info rmat ion - Sour ce Unsp ecif ied
--- NOTE | 2017-02-07 20:07 | Emergency Room Report ---
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 N Clinical Suspician of Infection? N Mental Status: 1 - Regular (Normal Baseline) Sepsis Risk:Low Sepsis Risk Have you (or family members/close friends) recently traveled outside the [place]? N If Yes, where/when: Have you had exposure to infectious disease within the past month? N TB? Other? Specify: Source patient, RN notes reviewed, family, RN/MD Exam Limitations no limitations Comment This is an 81-year-old snf male patient brought to the emergency room due to decreased appetite and refusal to eat for the past 3 days. ALLERGIES Coded Allergies: No Known Allergies (01/28/17) Home Medications Active Scripts Psyllium Husk (Metamucil) 3 TSP PO DAILY #660 GM Ref 2 Prov: 01/30/17 POTASSIUM CHL (Potassium Chloride) 10 MEQ PO DAILY #30 TAB Prov: 01/30/17 Reported Medications Losartan Potassium (Losartan 50MG) 50 MG PO DAILY #30 ASPIRIN (Aspirin 325MG) 325 MG PO DAILY Pantoprazole Sodium (Pantoprazole 40MG) 40 MG PO DAILY Multivit With Calcium,Iron,Min (Essential Daily) 1 EACH PO DAILY ONDANSETRON HCL (Zofran 4MG Tab) 4 MG PO Q6HP PRN NAUSEA AND VOMITING Mirtazapine (Remeron) 7.5 MG PO QHS Carvedilol (Coreg 12.5Mg) 12.5 MG PO BID NICOTINE (Nicotine Patch) 14 MG TD DAILY Ciprofloxacin HCl 250 MG PO BID Lactose-Reduced Food (Ensure Original) 8 OZ PO BID Lidocaine (Topicaine 5) 5 TP PRN PRN PAIN-GUMLINE Acetaminophen (Tylenol XS 500MG) 500 MG PO Q4HP PRN PAIN/FEVER History Medical History General CAD? No Angina: No [place]: No Hypertension? Yes Hyperlipidemia? No CHF? No DVT? No PE? No COPD? Yes Asthma? No Anemia? No GERD? No Gastric ulcers? No GI Bleed? No Hernia? No Thyroid Problems? No Hypothyroidism? No CVA? No Seizures? No Diabetes? No Renal Insuffiency? Yes End Stage Renal Disease? No UTI? No Stones? No BPH? No GB Disease: No Nephritic Syndrome? No Asplenia? No Hepatitis? No Sickle Cell Disease? No Arthritis? Yes Migraines? No Cataracts? No Glaucoma? No MRSA? No HIV? No TB? No Anxiety? No Depression? No Cancer? No More? No Immunization Hx DT/Tetanus Unknown Flu Refused Pneumonia Unknown Surgical Hx Previous Surgery?Y RIGHT EAR SURGERY AAA Family History Family Hx Diabetes No CAD No Hypertension Yes Hyperlipidemia No Cancer No TB No Social History Smoking Hx Smoker: Current Every Day Smoker Tobacco: Yes Type Cigarettes Packs/day 1 1/2 - 2 Packs Alcohol Alcohol: No Review of Systems All Other Systems Reviewed and Negative Comment Refusal to eat, concerns of dehydration Physical Exam Vital Signs Vital Signs Date Time Temp Pulse Resp B/P Pulse O2 O2 Flow FiO2 Ox Delivery Rate 02/08 2208 98.4 53 20 133/75 97 02/07 2125 53 20 133/75 97 02/07 2059 98.4 52 20 108/60 93 02/07 1942 98.0 57 20 100/59 94 General Appearance normal appearance, WD/WN, no apparent distress Eye Exam - bilateral eye normal exam, bilateral eye PERRL, bilateral eye EOMI Ear, Nose, Throat hearing grossly normal, normal ENT inspection Respiratory Status Yes: trachea midline, chest symmetrical, non tender chest. No: respiratory distress. Lung Sounds bilateral: normal breath sounds, lungs clear. 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 No Comment 2030-patient eating and drinking in the emergency room, in contrast with snf statement/complaint upon presentation. Abnormal labs noticed, patient will need IV hydration given his elevated creatinine. 2044-case d/w Dr Jackson, covering for Dr. Goncalves, advise of patient's presentation findings, agreeable with hospitalization. Care transferred to Dr. Jackson at this time. I will write temporary admission orders per hospital protocol. Upon patient's arrival to the floor the unit nurse will contact PCP in order to obtain full inpatient admission orders. Results/Orders Laboratory Tests 02/07/172119: Urine Color YELLOW, Urine Appearance CLEAR, Urine pH 7.5, Ur Specific [place] 1.010, Urine Protein NEGATIVE, Urine Ketones NEGATIVE, Urine Blood NEGATIVE, Urine Nitrate NEGATIVE, Urine Bilirubin NEGATIVE, Urine Urobilinogen 0.2, Ur Leukocyte Esterase NEGATIVE, Urine RBC OCC, Urine WBC OCC, Ur Squamous Epith Cells OCC, Urine Bacteria TRACE, Hyaline Casts 3-5, Urine Glucose NEGATIVE 02/07/172002: Creatine Kinase 50, CK-MB (CK-2) Rel Index 1.0, CK and CKMB Interp < 0.5, Troponin I < 0.02 02/07/172002: Sodium 133 L, Potassium 5.2 H, Chloride 92 L, Carbon Dioxide 34 H, BUN 56 H , Creatinine 3.6 H, Estimated Creat Clear 19 L, Estimated GFR (MDRD) 16, Glucose 92, Calcium 8.8, Total Bilirubin 0.5, AST 14 L, ALT 10 L, Alkaline Phosphatase 99, Total Protein 7.4, Albumin 3.3 L, Globulin 4.1 H, Albumin/ Globulin Ratio 0.8 L, Amylase 69, Lipase 182, WBC 10.6, RBC 3.85 L, Hgb 11.3 L, Hct 34.8 L, MCV 90.5, RDW 14.0, Plt Count 432 H, MPV 7.8, Gran % 54.0, Gran # 5.7, Lymphocytes % 27.5, Monocytes % 9.2, Eosinophils % 8.3, Basophils % 1.0, Lymphocytes # 2.9, Monocytes # 1.0, Eosinophils # 0.9 H, Basophils # 0.1, PUBS MCHC 32.6, MCH 29.5 02/07/17 0600: Sodium Cancelled, Potassium Cancelled, Chloride Cancelled, Carbon Dioxide Cancelled, BUN Cancelled, Creatinine Cancelled, Estimated Creat Clear Cancelled, Estimated GFR (MDRD) Cancelled, Glucose Cancelled, Calcium Cancelled, Total Bilirubin Cancelled, AST Cancelled, ALT Cancelled, Alkaline Phosphatase Cancelled, Total Protein Cancelled, Albumin Cancelled, Globulin Cancelled, Albumin/Globulin Ratio Cancelled Current Medication Orders Sig/Jhonny Start time Last Medication Dose Route Stop Time Status Admin Sodium Chloride 1,000 ML .[id number] 02/07 2130 UNV IV Sodium Chloride 1,000 ML .STK-MED ONE 02/07 2007 DC IV Sodium Chloride 10 ML PRN PRN 02/07 1945 AC IV 02/08 1943 Sodium Chloride 1,000 ML .[id number] 02/07 1945 DC 02/07 IV 02/07 Sodium Chloride 10 ML PRN PRN 02/07 1945 AC IV 02/09 1944 Orders Procedure Date/time Status DIET-REGULAR ( TOLERATED) 02/08 B Active CBC WITH AUTO DIFF 02/08 0600 Active URINALYSIS/COMPLETE 02/07 2111 Complete STREP SCREEN THROAT 02/07 2046 Complete 12 LEAD EKG-[facility] (INITIAL) 02/08 1944 Active ELECTROCARDIOGRAM REQUEST 02/08 1944 Active IV SALINE LOCK 02/07 1943 Active LIPASE 02/07 1943 Complete CBC WITH AUTO DIFF 02/07 1943 Complete CARDIAC ENZYMES 02/07 1943 Complete CHEM 12 PROFILE 02/07 1943 Complete AMYLASE 02/07 1943 Complete ADMIT PATIENT 02/07 UNK Active VITAL SIGNS 02/07 UNK Active POM NURSE ROMMEL HOSE ORDER 02/07 UNK Active GEN NSG/PT REQ (NOT FOR MEDS!) 02/07 UNK Active CODE STATUS 02/07 UNK Active PATIENT ACTIVITY ORDER 02/07 UNK Active 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 of ischemic chgs, no ectopy, normal QRS, normal NM, no EKG for comparison, non-spec. ST/Twave chgs, ST elevation, ST depression, LBBB, RBBB, ectopy, abnormal Q waves Departure Departure Time of Disposition 2053 Disposition Still a Patient Clinical Impression Primary Impression: Acute renal failure Qualifiers: Acute renal failure type: unspecified Qualified Code: N17.9 - Acute kidney failure, unspecified Secondary Impressions: Dehydration Condition STABLE Referrals Sacha STEVENSON,Albaro (Family) ED Critical Care Critical Care No at [id number]
--- NOTE | 2017-02-07 20:07 | Emergency Room Report ---
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 N Clinical Suspician of Infection? N Mental Status: 1 - Regular (Normal Baseline) Sepsis Risk:Low Sepsis Risk Have you (or family members/close friends) recently traveled outside the [place]? N If Yes, where/when: Have you had exposure to infectious disease within the past month? N TB? Other? Specify: Source patient, RN notes reviewed, family, RN/MD Exam Limitations no limitations Comment This is an 81-year-old longterm male patient brought to the emergency room due to decreased appetite and refusal to eat for the past 3 days. ALLERGIES Coded Allergies: No Known Allergies (01/28/17) Home Medications Active Scripts Psyllium Husk (Metamucil) 3 TSP PO DAILY #660 GM Ref 2 Prov: 01/30/17 POTASSIUM CHL (Potassium Chloride) 10 MEQ PO DAILY #30 TAB Prov: 01/30/17 Reported Medications Losartan Potassium (Losartan 50MG) 50 MG PO DAILY #30 ASPIRIN (Aspirin 325MG) 325 MG PO DAILY Pantoprazole Sodium (Pantoprazole 40MG) 40 MG PO DAILY Multivit With Calcium,Iron,Min (Essential Daily) 1 EACH PO DAILY ONDANSETRON HCL (Zofran 4MG Tab) 4 MG PO Q6HP PRN NAUSEA AND VOMITING Mirtazapine (Remeron) 7.5 MG PO QHS Carvedilol (Coreg 12.5Mg) 12.5 MG PO BID NICOTINE (Nicotine Patch) 14 MG TD DAILY Ciprofloxacin HCl 250 MG PO BID Lactose-Reduced Food (Ensure Original) 8 OZ PO BID Lidocaine (Topicaine 5) 5 TP PRN PRN PAIN-GUMLINE Acetaminophen (Tylenol XS 500MG) 500 MG PO Q4HP PRN PAIN/FEVER History Medical History General CAD? No Angina: No [place]: No Hypertension? Yes Hyperlipidemia? No CHF? No DVT? No PE? No COPD? Yes Asthma? No Anemia? No GERD? No Gastric ulcers? No GI Bleed? No Hernia? No Thyroid Problems? No Hypothyroidism? No CVA? No Seizures? No Diabetes? No Renal Insuffiency? Yes End Stage Renal Disease? No UTI? No Stones? No BPH? No GB Disease: No Nephritic Syndrome? No Asplenia? No Hepatitis? No Sickle Cell Disease? No Arthritis? Yes Migraines? No Cataracts? No Glaucoma? No MRSA? No HIV? No TB? No Anxiety? No Depression? No Cancer? No More? No Immunization Hx DT/Tetanus Unknown Flu Refused Pneumonia Unknown Surgical Hx Previous Surgery?Y RIGHT EAR SURGERY AAA Family History Family Hx Diabetes No CAD No Hypertension Yes Hyperlipidemia No Cancer No TB No Social History Smoking Hx Smoker: Current Every Day Smoker Tobacco: Yes Type Cigarettes Packs/day 1 1/2 - 2 Packs Alcohol Alcohol: No Review of Systems All Other Systems Reviewed and Negative Comment Refusal to eat, concerns of dehydration Physical Exam Vital Signs Vital Signs Date Time Temp Pulse Resp B/P Pulse O2 O2 Flow FiO2 Ox Delivery Rate 02/08 2208 98.4 53 20 133/75 97 02/07 2125 53 20 133/75 97 02/07 2059 98.4 52 20 108/60 93 02/07 1942 98.0 57 20 100/59 94 General Appearance normal appearance, WD/WN, no apparent distress Eye Exam - bilateral eye normal exam, bilateral eye PERRL, bilateral eye EOMI Ear, Nose, Throat hearing grossly normal, normal ENT inspection Respiratory Status Yes: trachea midline, chest symmetrical, non tender chest. No: respiratory distress. Lung Sounds bilateral: normal breath sounds, lungs clear. 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 No Comment 2030-patient eating and drinking in the emergency room, in contrast with longterm statement/complaint upon presentation. Abnormal labs noticed, patient will need IV hydration given his elevated creatinine. 2044-case d/w Dr Jackson, covering for Dr. Goncalves, advise of patient's presentation findings, agreeable with hospitalization. Care transferred to Dr. Jackson at this time. I will write temporary admission orders per hospital protocol. Upon patient's arrival to the floor the unit nurse will contact PCP in order to obtain full inpatient admission orders. Results/Orders Laboratory Tests 02/07/172119: Urine Color YELLOW, Urine Appearance CLEAR, Urine pH 7.5, Ur Specific [place] 1.010, Urine Protein NEGATIVE, Urine Ketones NEGATIVE, Urine Blood NEGATIVE, Urine Nitrate NEGATIVE, Urine Bilirubin NEGATIVE, Urine Urobilinogen 0.2, Ur Leukocyte Esterase NEGATIVE, Urine RBC OCC, Urine WBC OCC, Ur Squamous Epith Cells OCC, Urine Bacteria TRACE, Hyaline Casts 3-5, Urine Glucose NEGATIVE 02/07/172002: Creatine Kinase 50, CK-MB (CK-2) Rel Index 1.0, CK and CKMB Interp < 0.5, Troponin I < 0.02 02/07/172002: Sodium 133 L, Potassium 5.2 H, Chloride 92 L, Carbon Dioxide 34 H, BUN 56 H , Creatinine 3.6 H, Estimated Creat Clear 19 L, Estimated GFR (MDRD) 16, Glucose 92, Calcium 8.8, Total Bilirubin 0.5, AST 14 L, ALT 10 L, Alkaline Phosphatase 99, Total Protein 7.4, Albumin 3.3 L, Globulin 4.1 H, Albumin/ Globulin Ratio 0.8 L, Amylase 69, Lipase 182, WBC 10.6, RBC 3.85 L, Hgb 11.3 L, Hct 34.8 L, MCV 90.5, RDW 14.0, Plt Count 432 H, MPV 7.8, Gran % 54.0, Gran # 5.7, Lymphocytes % 27.5, Monocytes % 9.2, Eosinophils % 8.3, Basophils % 1.0, Lymphocytes # 2.9, Monocytes # 1.0, Eosinophils # 0.9 H, Basophils # 0.1, PUBS MCHC 32.6, MCH 29.5 02/07/17 0600: Sodium Cancelled, Potassium Cancelled, Chloride Cancelled, Carbon Dioxide Cancelled, BUN Cancelled, Creatinine Cancelled, Estimated Creat Clear Cancelled, Estimated GFR (MDRD) Cancelled, Glucose Cancelled, Calcium Cancelled, Total Bilirubin Cancelled, AST Cancelled, ALT Cancelled, Alkaline Phosphatase Cancelled, Total Protein Cancelled, Albumin Cancelled, Globulin Cancelled, Albumin/Globulin Ratio Cancelled Current Medication Orders Sig/Jhonny Start time Last Medication Dose Route Stop Time Status Admin Sodium Chloride 1,000 ML .[id number] 02/07 2130 UNV IV Sodium Chloride 1,000 ML .STK-MED ONE 02/07 2007 DC IV Sodium Chloride 10 ML PRN PRN 02/07 1945 AC IV 02/08 1943 Sodium Chloride 1,000 ML .Q1H1M 02/07 1945 DC 02/07 IV 02/07 Sodium Chloride 10 ML PRN PRN 02/07 1945 AC IV 02/09 1944 Orders Procedure Date/time Status DIET-REGULAR ( TOLERATED) 02/08 B Active CBC WITH AUTO DIFF 02/08 0600 Active URINALYSIS/COMPLETE 02/07 2111 Complete STREP SCREEN THROAT 02/07 2046 Complete 12 LEAD EKG-[facility] (INITIAL) 02/08 1944 Active ELECTROCARDIOGRAM REQUEST 02/08 1944 Active IV SALINE LOCK 02/07 1943 Active LIPASE 02/07 1943 Complete CBC WITH AUTO DIFF 02/07 1943 Complete CARDIAC ENZYMES 02/07 1943 Complete CHEM 12 PROFILE 02/07 1943 Complete AMYLASE 02/07 1943 Complete ADMIT PATIENT 02/07 UNK Active VITAL SIGNS 02/07 UNK Active POM NURSE ROMMEL HOSE ORDER 02/07 UNK Active GEN NSG/PT REQ (NOT FOR MEDS!) 02/07 UNK Active CODE STATUS 02/07 UNK Active PATIENT ACTIVITY ORDER 02/07 UNK Active 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 of ischemic chgs, no ectopy, normal QRS, normal [place], no EKG for comparison, non-spec. ST/Twave chgs, ST elevation, ST depression, LBBB, RBBB, ectopy, abnormal Q waves Departure Departure Time of Disposition 2053 Disposition Still a Patient Clinical Impression Primary Impression: Acute renal failure Qualifiers: Acute renal failure type: unspecified Qualified Code: N17.9 - Acute kidney failure, unspecified Secondary Impressions: Dehydration Condition STABLE Referrals Sacha STEVENSON,[place]baro (Family) ED Critical Care Critical Care No at 0038
[2017-02-07 20:14] LABS: LYMPH # 2.9 K/mm3 (0.7-4.5); LYMPH % 27.5 % (10-50)
[2017-02-07 20:19] LABS: HEMOGLOBIN 11.3 g/dL (14.1-18.0)
--- OUTSIDE RECORDS SUMMARY | 2017-02-07 21:14 | External Medical Summary Rpt | CCD ---
Author Author , PAULO Organization PAULO Address Unknown Phone [email or web address] Purpose Continuity of Care Document - 12-05-2016 [...] Range on Antibiotic sensitivity studies (01-30-2017 06:19) Ampicil -08-2 >= 32 complet lorena 017 ug/ml ed suscept 06:19 ibility test by minimum inhibit ory concent ration Amoxici 01-30-2 = 16 complet llin/cl 017 ug/ml ed avulana 06:19 te suscept ibility test by minimum inhibit ory concent ration Ceftazi 01-30-2 <= 1 complet dime/po 017 ug/ml ed tassium 06:19 clavula shandra suscept ibility test by minimum inhibit ory concent ration Ceftria 01-30-2 <= 1 complet xone 017 ug/ml ed suscept 06:19 ibility test by minimum inhibit ory concent ration Cefazol 01-30-2 <= 4 complet in 017 ug/ml ed suscept 06:19 ibility test by minimum inhibit ory concent ration Extende 01-30-2 = ug/ml complet d 017 ed spectru 06:19 m beta lactama se (ESBL) produci ng bacteri a suscept ibility test by minimum inhibit ory Ertapen 01-30-2 <= 0.5 complet em 017 ug/ml ed suscept 06:19 ibility test by minimum inhibit ory concent ration Cefepim 08-2 <= 1 complet e 017 ug/ml ed suscept 06:19 ibility test by minimum inhibit ory concent ration Nitrofu 08-2 <= 16 complet rantoin 017 ug/ml ed 06:19 suscept ibility test by minimum inhibit ory concent ration Gentami -08-2 <= 1 complet vee 017 ug/ml ed suscept 06:19 ibility test by minimum inhibit ory concent ration Imipene 2 <= 0.25 complet m 017 ug/ml ed suscept 06:19 ibility test by minimum inhibit ory concent ration Levoflo 2 <= 0.12 complet xacin 017 ug/ml ed suscept 06:19 ibility test by minimum inhibit ory concent ration Ampicil 2 >= 32 complet lorena/sul 017 ug/ml ed bactam 06:19 suscept ibility test by minimum inhibit ory concent ration Trimeth 2 >= 320 complet oprim/s 017 ug/ml ed ulfamet 06:19 hoxazol e suscept ibility test by minimum inhibit ory concent ration Tobramy 2 <= 1 complet vee 017 ug/ml ed suscept 06:19 ibility test by minimum inhibit ory concent ration Piperac 2 <= 4 complet illin/t 017 ug/ml ed azobact 06:19 am suscept ibility test by minimum inhibit ory concent ration Basic metabolic panel (01-29-2017 05:10) Serum = 22 7-18 complet or 017 mg/dL ed plasma 05:10 urea nitroge n measure men Serum = 8.1 8.5-10. complet or 017 mg/dL 1 ed plasma 05:10 calcium measure ment (mas Serum = 104 98-107 complet or 017 mmoL/L ed plasma 05:10 chlorid e measure ment (mo Carbon = 29 21.0-32 complet dioxide 017 mmoL/L .0 ed 05:10 measure ment Serum = 1.9 0.70-1. complet or 017 mg/dL 30 ed plasma 05:10 creatin ine measure ment ( Estimat = 27 50-200 complet ion of 017 ML/MIN ed creatin 05:10 ine renal clearan ce Estimat = 34 >60 complet ed 017 ML/MIN ed glomeru 05:10 lar filtrat ion rate (GF Serum = 85 74-106 complet or 017 mg/dL ed plasma 05:10 glucose measure ment (mas Serum = 3.0 3.5-5.1 complet potassi 017 mmoL/L ed um 05:10 measure ment Serum = 141 136-145 complet sodium 017 mmoL/L ed measure 05:10 ment CBC w auto diff (01-29-2017 05:10) Baso % = 0.6 % 0.1-2.0 complet 017 ed 05:10 Automat = 0.6 0.0-0.4 complet ed 017 K/mm3 ed blood 05:10 eosinop hil count Automat = 10.1 0.1-12. complet ed 017 % 0 ed blood 05:10 eosinop hils/10 0 leukocy t Blood = 3.2 1.3-8.0 complet granulo 017 K/mm3 ed cytes 05:10 automat ed count (numb Granulo = 51.4 37.0-80 complet cyte 017 % .0 ed percent 05:10 age Blood = 29.6 42.0-52 complet hematoc 017 % .0 ed rit 05:10 (volume fractio n) Blood = 9.9 14.1-18 complet hemoglo 017 g/dL .0 ed bin 05:10 measure ment (mass/v olum Absolut = 1.7 0.7-4.5 complet e 017 K/mm3 ed lymphoc 05:10 yte count Lymphoc = 27.2 10-50 complet yte 017 % ed count, 05:10 blood, automat ed Mean = 30.1 27-31.2 complet corpusc 017 pg ed ular 05:10 hemoglo bin (MCH) determ Automat = 33.0 31.8-35 complet ed 017 g/dl .4 ed erythro 05:10 cyte mean corpusc ular h Automat = 91.1 82.2-97 complet ed 017 fl .8 ed erythro 05:10 cyte mean corpusc ular v Absolut = 0.7 0.1-1.0 complet e 017 K/mm3 ed monocyt 05:10 e count Rooks % = 10.8 1.7-9.3 complet 017 % ed 05:10 Automat = 7.9 7.4-10. complet ed 017 fl 4 ed blood 05:10 platele t mean volume ruben Blood = 219 142-424 complet platele 017 K/mm3 ed t count 05:10 Red = 3.25 4.6-6.2 complet blood 017 M/mm3 ed cell 05:10 count Automat = 14.5 11.5-17 complet ed 017 % .5 ed erythro 05:10 cyte distrib ution width Automat = 0.0 0-0.2 complet ed 017 K/MM3 ed blood 05:10 basophi l count (count/ vo Blood = 6.2 4.8-10. complet leukocy 017 K/MM3 8 ed regine 05:10 count (number /volume ) CBC w auto diff (01-28-2017 13:15) Automat = 0.1 0-0.2 complet ed 017 K/MM3 ed blood 13:15 basophi l count (count/ vo Red = 3.86 4.6-6.2 complet blood 017 M/mm3 ed cell 13:15 count Automat = 14.6 11.5-17 complet ed 017 % .5 ed erythro 13:15 cyte distrib ution width Blood = 7.6 4.8-10. complet leukocy 017 K/MM3 8 ed regine 13:15 count (number /volume ) Baso % = 0.9 % 0.1-2.0 complet 017 ed 13:15 Automat = 0.5 0.0-0.4 complet ed 017 K/mm3 ed blood 13:15 eosinop hil count Automat = 6.8 % 0.1-12. complet ed 017 0 ed blood 13:15 eosinop hils/10 0 leukocy t Blood = 4.8 1.3-8.0 complet granulo 017 K/mm3 ed cytes 13:15 automat ed count (numb Granulo = 63.4 37.0-80 complet cyte 017 % .0 ed percent 13:15 age Blood = 35.1 42.0-52 complet hematoc 017 % .0 ed rit 13:15 (volume fractio n) Blood = 11.9 14.1-18 complet hemoglo 017 g/dL .0 ed bin 13:15 measure ment (mass/v olum Absolut = 1.6 0.7-4.5 complet e 017 K/mm3 ed lymphoc 13:15 yte count Lymphoc = 20.7 10-50 complet yte 017 % ed count, 13:15 blood, automat ed Mean = 30.7 27-31.2 complet corpusc 017 pg ed ular 13:15 hemoglo bin (MCH) determ Automat = 33.8 31.8-35 complet ed 017 g/dl .4 ed erythro 13:15 cyte mean corpusc ular h Automat = 90.9 82.2-97 complet ed 017 fl .8 ed erythro 13:15 cyte mean corpusc ular v Absolut = 0.6 0.1-1.0 complet e 017 K/mm3 ed monocyt 13:15 e count Rooks % = 8.2 % 1.7-9.3 complet 017 ed 13:15 Automat = 9.8 7.4-10. complet ed 017 fl 4 ed blood 13:15 platele t mean volume ruben Blood = 216 142-424 complet platele 017 K/mm3 ed t count 13:15 Comprehensive metabolic panel (01-28-2017 13:15) Serum = 0.8 1.1-1.8 complet or 017 ed plasma 13:15 albumin /globul in mass ra Serum = 3.3 3.4-5.0 complet or 017 gm/dL ed plasma 13:15 albumin measure ment (mas Serum = 103 46-116 complet or 017 U/L ed plasma 13:15 alkalin e phospha tase ruben Serum = 0.8 0.2-1.0 complet or 017 mg/dL ed plasma 13:15 total bilirub in measure m Serum = 24 7-18 complet or 017 mg/dL ed plasma 13:15 urea nitroge n measure men Serum = 8.7 8.5-10. complet or 017 mg/dL 1 ed plasma 13:15 calcium measure ment (mas Serum = 100 98-107 complet or 017 mmoL/L ed plasma 13:15 chlorid e measure ment (mo Carbon = 30 21.0-32 complet dioxide 017 mmoL/L .0 ed 13:15 measure ment Serum = 2.1 0.70-1. complet or 017 mg/dL 30 ed plasma 13:15 creatin ine measure ment ( Estimat = 24 50-200 complet ion of 017 ML/MIN ed creatin 13:15 ine renal clearan ce Estimat = 30 >60 complet ed 017 ML/MIN ed glomeru 13:15 lar filtrat ion rate (GF Serum = 3.9 1.3-3.2 complet globuli 017 gm/dL ed n 13:15 measure ment (mass/v olume) Serum = 91 74-106 complet or 017 mg/dL ed plasma 13:15 glucose measure ment (mas Serum = 3.6 3.5-5.1 complet potassi 017 mmoL/L ed um 13:15 measure ment Serum = 138 136-145 complet sodium 017 mmoL/L ed measure 13:15 ment Serum = 19 15-37 complet or 017 U/L ed plasma 13:15 asparta te aminotr ansfera ALT = 11 12-78 complet (SGPT) 017 U/L ed ser/darron 13:15 s Protein = 7.2 6.4-8.2 complet total 017 gm/dL ed ser/darron 13:15 s DIARRHEA PANEL,PCR (01-28-2017 13:10) Aeromon NOT NOT complet as 017 DETECTE DETECTE ed salmoni 13:10 D NOT mariel DETECTE detecti D L on Astrovi NOT NOT complet kyung 017 DETECTE DETECTE ed detecti 13:10 D NOT on DETECTE D L Campylo NOT NOT complet bacter 017 DETECTE DETECTE ed antibod 13:10 D NOT y assay DETECTE D L Stool NOT NOT complet Clostri 017 DETECTE DETECTE ed dium 13:10 D NOT diffici DETECTE le A D L and B toxi Cryptos NOT NOT complet poridiu 017 DETECTE DETECTE ed m ag 13:10 D NOT detecti DETECTE on D L Cyclosp NOT NOT complet ora 017 DETECTE DETECTE ed cayetan 13:10 D NOT esis DETECTE detecti D L on Escheri NOT NOT complet doreen 017 DETECTE DETECTE ed coli 13:10 D NOT detecti DETECTE on D L Escheri NOT NOT complet doreen 017 DETECTE DETECTE ed coli 13:10 D NOT Shiga-l DETECTE terry D L toxin 1 assa Escheri NOT NOT complet doreen 017 DETECTE DETECTE ed coli 13:10 D NOT O157 DETECTE stool D L culture Entamoe NOT NOT complet ba 017 DETECTE DETECTE ed histoly 13:10 D NOT kendra DETECTE detecti D L on Stool NOT NOT complet Giardia 017 DETECTE DETECTE ed 13:10 D NOT lamblia DETECTE D L antigen detecti on Stool NOT NOT complet norovir 017 DETECTE DETECTE ed us 13:10 D NOT assay DETECTE D L Stool NOT NOT complet Plesiom 017 DETECTE DETECTE ed onas 13:10 D NOT shigell DETECTE oides D L DNA detec Rotavir NOT NOT complet us RNA 017 DETECTE DETECTE ed detecti 13:10 D NOT on by DETECTE probe D L and tar Salmone NOT NOT complet lla 017 DETECTE DETECTE ed species 13:10 D NOT DNA DETECTE detecti D L on by prob Caliciv NOT NOT complet irus ID 017 DETECTE DETECTE ed 13:10 D NOT DETECTE D L E coli NOT NOT complet detecti 017 DETECTE DETECTE ed on 13:10 D NOT DETECTE D L Vibrio NOT NOT complet species 017 DETECTE DETECTE ed 13:10 D NOT nucleic DETECTE acid D L assay by PCR Stool NOT NOT complet adenovi 017 DETECTE DETECTE ed kyung 40 13:10 D NOT and 41 DETECTE antigen D L assay Escheri NOT NOT complet doreen 017 DETECTE DETECTE ed coli 13:10 D NOT shiga-l DETECTE terry D L toxin STX1 a Vibrio NOT NOT complet cholera 017 DETECTE DETECTE ed e DNA 13:10 D NOT detecti DETECTE on by D L probe a Stool NOT NOT complet Vibrio 017 DETECTE DETECTE ed species 13:10 D NOT DETECTE identif D L ication by o Urinalysis with microscopy (01-26-2017 12:05) Urine CLOUDY CLEAR complet appeara 017 CLOUDY ed nce 12:05 L determi nation Bacteri 4+ 4+ L O complet a 017 ed detecti 12:05 on in urine sedimen t by Urine NEGATIV NEG complet total 017 E ed bilirub 12:05 NEGATIV in E L detecti on by test Urine 2+ 2+ L NEG complet blood 017 ed detecti 12:05 on Urine YELLOW YELLOW complet color 017 YELLOW ed 12:05 L Glucose = NEG complet ur 017 NEGATIV ed test 12:05 E strip Urine NEGATIV NEG complet ketones 017 E ed 12:05 NEGATIV detecti E L on by mg/dL automat ed regine Mucus NEGATIV NEG complet detecti 017 E ed on in 12:05 NEGATIV urine E L sedimen t by lig Urine NEGATIV NEG complet nitrite 017 E ed 12:05 NEGATIV detecti E L on by test strip Urine = 5.5 5.0-8.5 complet pH 017 ed 12:05 Urine = NEG complet protein 017 NEGATIV ed 12:05 E mg/dL measure ment by automat ed t Erythro 10-20 0 complet cytes 017 10-20 L ed detecti 12:05 on in rbc/hpf urine sedimen t Urine < = 1.005-1 complet specifi 017 1.005 .030 ed c 12:05 gravity measure ment Squamou 5-10 OCC complet s 017 5-10 L ed epithel 12:05 #/hpf ial cells detecti on in u Urine 0.2 0.2 NEG complet urobili 017 L ed nogen 12:05 E.U./dL detecti on by test str Urine 20 - 50 O complet leukocy 017 ed regine 12:05 wbc/hpf count (number /volume ) Urine culture (01-26-2017 12:05) Urine [id number] complet culture 017 07 ed 12:05 Escheri doreen coli SCT EC ESCHERI DOREEN COLI L CBC w auto diff (01-26-2017 09:45) Automat [...] 017 K/mm3 ed monocyt 09:45 e count Rooks % = 8.5 % 1.7-9.3 complet 017 [...] ed regine 09:45 count (number /volume ) Comprehensive metabolic panel (01-26-2017 09:45) Serum = 0.7 1.1-1.8 complet or 017 ed plasma 09:45 albumin /globul in mass ra Serum = 3.1 3.4-5.0 complet or 017 gm/dL ed plasma 09:45 albumin measure ment (mas Serum = 104 46-116 complet or 017 U/L ed plasma 09:45 alkalin e phospha tase ruben Serum = 1.0 0.2-1.0 complet or 017 mg/dL ed plasma 09:45 total bilirub in measure m Serum = 22 7-18 complet or 017 mg/dL ed plasma 09:45 urea nitroge n measure men Serum 11-04-2 = 8.7 8.5-10. complet or 017 mg/dL 1 ed plasma 09:45 calcium measure ment (mas Serum = 103 98-107 complet or 017 mmoL/L ed plasma 09:45 chlorid e measure ment (mo Carbon = 27 21.0-32 complet dioxide 017 mmoL/L .0 ed 09:45 measure ment Serum 01-26-2 = 1.6 0.70-1. complet or 017 mg/dL 30 ed plasma 09:45 creatin ine measure ment ( Estimat 2 = 32 50-200 complet ion of 017 ML/MIN ed creatin 09:45 ine renal clearan ce Estimat = 42 >60 complet ed 017 ML/MIN ed glomeru 09:45 lar filtrat ion rate (GF Serum = 4.2 1.3-3.2 complet globuli 017 gm/dL ed n 09:45 measure ment (mass/v olume) Serum = 87 74-106 complet or 017 mg/dL ed plasma 09:45 glucose measure ment (mas Serum = 4.1 3.5-5.1 complet potassi 017 mmoL/L ed um 09:45 measure ment Serum = 139 136-145 complet sodium 017 mmoL/L ed measure 09:45 ment Serum = 14 15-37 complet or 017 U/L ed plasma 09:45 asparta te aminotr ansfera ALT = 9 U/L 12-78 complet (SGPT) 017 ed ser/darron 09:45 s Protein = 7.3 6.4-8.2 complet total 017 gm/dL ed ser/darron 09:45 s Serum or plasma troponin i.cardiac measu (01-26-2017 09:45) Serum < 0.02 0.00-0. complet or 017 ng/mL 06 ed plasma 09:45 troponi n i.cardi ac measu Magnesium SerPl-mCnc (12-14-2016 09:33) Magnesi 12-14- 2.0 1.9-2.4 complet um 017 mg/dL ed SerPl-m 09:33 Cnc Magnesium SerPl-mCnc (12-05-2016 15:38) Magnesi 2.3 1.9-2.4 complet um 017 mg/dL ed SerPl-m 15:38 Cnc Phosphate SerPl-mCnc (12-05-2016 15:38) Phospha 3.1 2.5-4.5 complet te 017 mg/dL ed SerPl-m 15:38 Cnc
--- OUTSIDE RECORDS SUMMARY | 2017-02-07 21:14 | External Medical Summary Rpt | CCD ---
Author Author , PAULO Organization PAULO Address Unknown Phone [email or web address] Purpose Continuity of Care Document - 12-05-2016 [...] concent ration Gentami -08-2 <= 1 complet eve 017 ug/ml ed suscept 06:19 ibility test [...] 017 K/mm3 ed monocyt 05:10 e count Forrest % = 10.8 1.7-9.3 complet 017 % [...] 017 K/mm3 ed monocyt 13:15 e count Forrest % = 8.2 % 1.7-9.3 complet 017 [...] /volume ) Urine culture (01-26-2017 12:05) Urine [id number] complet culture 017 07 ed 12:05 Escheri [...] 017 K/mm3 ed monocyt 09:45 e count Forrest % = 8.5 % 1.7-9.3 complet 017 [...]
--- OUTSIDE RECORDS SUMMARY | 2017-02-07 21:15 | External Medical Summary Rpt ---
Author Author PAULO Marshall, PAULO [employer] Address Unknown Phone Unavailable Results Amylase [Enzymatic activity/volume] in Serum or Plasma Observa Value Referen Units Interpr Notes Date tion ce etation Range Amylase 25 - 115 U/L Normal No Feb 07 [Enzymati informati 2016 8:03 c on in PM activity/ source volume] data in Serum or Plasma Comprehensive metabolic 2000 panel in Serum or Plasma Observa Value Referen Units Interpr Notes Date tion ce etation Range Albumin/G 1.1 - 1.8 No Low No Feb 07 lobulin informati informati 2017 8:03 [Mass on in on in PM ratio] in source source Serum or data data Plasma Albumin 3.4 - 5.0 gm/dL Low No Feb 07 [Mass/vol informati 2016 8:03 ume] in on in PM Serum or source Plasma data Alkaline 46 - 116 U/L Normal No Feb 07 phosphata informati 2016 8:03 se on in PM [Enzymati source c data activity/ volume] in Serum or Plasma Bilirubin 0.2 - 1.0 mg/dL Normal No Feb 07 .total informati 2016 8:03 [Mass/vol on in PM ume] in source Serum or data Plasma Urea 7 - 18 mg/dL High No Feb 07 nitrogen informati 2016 8:03 [Mass/vol on in PM ume] in source Serum or data Plasma Calcium 8.5 - mg/dL Normal No Feb 07 [Mass/vol 10.1 informati 2017 8:03 ume] in on in PM Serum or source Plasma data Chloride 98 - 107 mmoL/L Low No Feb 07 [Moles/vo informati 2016 8:03 lume] in on in PM Serum or source Plasma data Carbon 21.0 - mmoL/L High No Feb 07 dioxide, 32.0 informati 2017 8:03 total on in PM [Moles/vo source lume] in data Serum or Plasma Creatinin 0.70 - mg/dL High No Feb 07 e 1.30 informati 2017 8:03 [Mass/vol on in PM ume] in source Serum or data Plasma Creatinin 50 - 200 ML/MIN Low No Feb 07 e renal informati 2016 8:03 clearance on in PM source predicted data by Cockcroft -Gault formula Estimated >60 ML/MIN No REFERENCE Feb 07 informati RANGE: 2017 8:03 glomerula on in >60 PM r source ML/MIN/1. filtratio data 73 SQUARE n rate METERSIf (GF this patient is -A merican, then multiply theresult by 1.210. Globulin 1.3 - 3.2 gm/dL High No Feb 07 [Mass/vol informati 2016 8:03 ume] in on in PM Serum source data Glucose 74 - 106 mg/dL Normal No Feb 07 [Mass/vol informati 2016 8:03 ume] in on in PM Serum or source Plasma data Potassium 3.5 - 5.1 mmoL/L High No Feb 07 informati 2016 8:03 [Moles/vo on in PM lume] in source Serum or data Plasma Sodium 136 - 145 mmoL/L Low No Feb 07 [Moles/vo informati 2016 8:03 lume] in on in PM Serum or source Plasma data Aspartate 15 - 37 U/L Low No Feb 07 informati 2016 8:03 aminotran on in PM sferase source [Enzymati data c activity/ volume] in Serum or Plasma Alanine 12 - 78 U/L Low No Feb 07 aminotran informati 2016 8:03 sferase on in PM [Enzymati source c data activity/ volume] in Serum or Plasma Protein 6.4 - 8.2 gm/dL Normal No Feb 07 [Mass/vol informati 2016 8:03 ume] in on in PM Serum or source Plasma data Lipase [Enzymatic activity/volume] in Serum or Plasma Observa Value Referen Units Interpr Notes Date tion ce etation Range Lipase 73 - 393 U/L Normal No Feb 07 [Enzymati informati 2016 8:03 c on in PM activity/ source volume] data in Serum or Plasma CBC W Auto Differential panel in Blood Observa Value Referen Units Interpr Notes Date tion ce etation Range Basophils 0 - 0.2 K/MM3 Normal No Feb 07 informati 2016 8:03 [#/volume on in PM ] in source Blood by data Automated count Basophils 0.1 - 2.0 % Normal No Feb 07 informati 2017 8:03 leukocyte on in PM s in source Blood by data Automated count Eosinophi 0.0 - 0.4 K/mm3 High No Feb 07 ls informati 2016 8:03 [#/volume on in PM ] in source Blood by data Automated count Eosinophi 0.1 - % Normal No Feb 07 ls/100 12.0 informati 2016 8:03 leukocyte on in PM s in source Blood by data Automated count Granulocy 1.3 - 8.0 K/mm3 Normal No Feb 07 regine informati 2016 8:03 [#/volume on in PM ] in source Blood by data Automated count Granulocy 37.0 - % Normal No Feb 07 regine/100 80.0 informati 2016 8:03 leukocyte on in PM s in source Blood by data Automated count Hematocri 42.0 - % Low No Feb 07 t [Volume 52.0 informati 2016 8:03 on in PM Fraction] source of Blood data Hemoglobi 14.1 - g/dL Low Feb 07 n 18.0 informati 2016 8:03 [Mass/vol on in PM ume] in source Blood data Lymphocyt 0.7 - 4.5 K/mm3 Normal No Feb 07 es informati 2016 8:03 [#/volume on in PM ] in source Unspecifi data ed specimen by Automated count Lymphocyt 10 - 50 % Normal No Feb 07 es 2016 8:03 [#/volume on in PM ] in source Unspecifi data ed specimen by Automated count Erythrocy 27 - 31.2 pg Normal Feb 07 te mean informati 2016 8:03 corpuscul on in PM ar source hemoglobi data n [Entitic mass] Erythrocy 31.8 - g/dl Normal No Feb 07 te mean 35.4 informati 2016 8:03 corpuscul on in PM ar source hemoglobi data n concentra tion [Mass/vol ume] by Automated count Erythrocy 82.2 - fl Normal Feb 07 te mean 97.8 informati 2016 8:03 corpuscul on in PM ar volume source [Entitic data volume] by Automated count Monocytes 0.1 - 1.0 K/mm3 Normal No Feb 07 informati 2016 8:03 [#/volume on in PM ] in source Blood by data Automated count Monocytes 1.7 - 9.3 % Normal No Nov 16 /100 informati 2016 8:03 leukocyte on in PM s in source Blood by data Automated count Platelet 7.4 - fl Normal No Feb 07 mean 10.4 ati 2016 8:03 volume on in PM [Entitic source volume] data in Blood by Automated count Platelets 142 - 424 K/mm3 High No Jan 16 2016 8:03 [#/volume on in PM ] in source Blood data Erythrocy 4.6 - 6.2 M/mm3 Low No Feb 07 regine informati 2016 8:03 [#/volume on in PM ] in source Amniotic data fluid Erythrocy 11.5 - % Normal No Feb 07 te 17.5 informati 2016 8:03 distribut on in PM ion width source [Entitic data volume] by Automated count Leukocyte 4.8 - K/MM3 Normal No Feb 07 s 10.8 ati 2016 8:03 [#/volume on in PM ] in source Blood data CBC W Auto Differential panel in Blood Observa Value Referen Units Interpr Notes Date tion ce etation Range Basophils 0 - 0.2 K/MM3 Normal No Jan 29 inform2016 5:10 [#/volume on in AM ] in source Blood by data Automated count Basophils 0.1 - 2.0 % Normal No Jan 29 /100 informati 2017 5:10 leukocyte on in AM s in source Blood by data Automated count Eosinophi 0.0 - 0.4 K/mm3 High No Jan 29 ls ati 2016 5:10 [#/volume on in AM ] in source Blood by data Automated count Eosinophi 0.1 - % Normal No Jan 29 ls/100 12.0 informati 2016 5:10 leukocyte on in AM s in source Blood by data Automated count Granulocy 1.3 - 8.0 K/mm3 Normal No Jan 29 regine informati 2016 5:10 [#/volume on in AM ] in source Blood by data Automated count Granulocy 37.0 - % Normal No Jan 29 regine/100 80.0 informati 2016 5:10 leukocyte on in AM s in source Blood by data Automated count Hematocri 42.0 - % Low No Jan 29 t [Volume 52.0 informati 2016 5:10 on in AM Fraction] source of Blood data Hemoglobi 14.1 - g/dL Low Jan 29 n 18.0 informati 2016 5:10 [Mass/vol on in AM ume] in source Blood data Lymphocyt 0.7 - 4.5 K/mm3 Normal No Jan 29 es informati 2016 5:10 [#/volume on in AM ] in source Unspecifi data ed specimen by Automated count Lymphocyt 10 - 50 % Normal No Jan 29 es informati 2016 5:10 [#/volume on in AM ] in source Unspecifi data ed specimen by Automated count Erythrocy 27 - 31.2 pg Normal No Jan 29 te mean informati 2017 5:10 corpuscul on in AM ar source hemoglobi data n [Entitic mass] Erythrocy 31.8 - g/dl Normal No Jan 29 te mean 35.4 informati 2017 5:10 corpuscul on in AM ar source hemoglobi data n concentra tion [Mass/vol ume] by Automated count Erythrocy 82.2 - fl Normal Jan 29 te mean 97.8 informati 2016 5:10 corpuscul on in AM ar volume source [Entitic data volume] by Automated count Monocytes 0.1 - 1.0 K/mm3 Normal No Jan 29 informati 2016 5:10 [#/volume on in AM ] in source Blood by data Automated count Monocytes 1.7 - 9.3 % High No Jan 7 /100 informati 2017 5:10 leukocyte on in AM s in source Blood by data Automated count Platelet 7.4 - fl Normal No Jan 29 mean 10.4 informati 2017 5:10 volume on in AM [Entitic source [...] mg/dL High No Jan 29 nitrogen informati 2017 5:10 [Mass/vol on in AM ume] in source Serum or data Plasma Calcium 8.5 - mg/dL Low No Jan 7 [Mass/vol 10.1 informati 2017 5:10 ume] in on in AM Serum or source Plasma data Chloride 98 - 107 mmoL/L Normal No Jan 7 [Moles/vo informati 2016 5:10 lume] in on in AM Serum or source Plasma data Carbon 21.0 - mmoL/L Normal No Jan 7 dioxide, 32.0 informati 2017 5:10 total on in AM [Moles/vo source lume] in data Serum or Plasma Creatinin 0.70 - mg/dL High No Jan 7 e 1.30 informati 2017 5:10 [Mass/vol on in AM ume] in source Serum or data Plasma Creatinin 50 - 200 ML/MIN Low No Jan 7 e renal informati 2017 5:10 clearance on in AM source predicted data by Cockcroft -Gault formula Estimated >60 ML/MIN No REFERENCE Jan 7 informati RANGE: 2017 5:10 glomerula on in >60 AM r source ML/MIN/1. filtratio data 73 SQUARE n rate METERSIf (GF this patient is -A merican, then multiply theresult by 1.210. Glucose 74 - 106 mg/dL Normal No Jan 7 [Mass/vol informati 2016 5:10 ume] in on in AM Serum or source Plasma data Potassium 3.5 - 5.1 mmoL/L Low Jan 29 2016 5:10 [Moles/vo CRITICAL AM lume] in RESULTS Serum or Plasma RESU LTS CALLED TO: [facility] 01/29/17 0630 Ez Ramos e Sodium 136 - 145 mmoL/L Normal No Jan 7 [Moles/vo informati 2017 5:10 lume] in on in AM Serum or source Plasma data Comprehensive metabolic 2000 panel in Serum or Plasma Observa Value Referen Units Interpr Notes Date tion ce etation Range Albumin/G 1.1 - 1.8 No Low No Nov 6 lobulin informati informati 2017 1:15 [Mass on in on in PM ratio] in source source Serum or data data Plasma Albumin 3.4 - 5.0 gm/dL Low No Nov 6 [Mass/vol informati 2017 1:15 ume] in on in PM Serum [...] Normal No Jan 28 dioxide, 32.0 informati 2017 1:15 total on in PM [Moles/vo source lume] in data Serum or Plasma Creatinin 0.70 - mg/dL High No Jan 28 e 1.30 informati 2017 1:15 [Mass/vol on in PM ume] in source Serum or data Plasma Creatinin 50 - 200 ML/MIN Low No Jan 28 e renal informati 2016 1:15 clearance on in PM source predicted data by Cockcroft -Gault formula Estimated >60 ML/MIN No REFERENCE Nov informati RANGE: 2017 1:15 glomerula on in [...] 3.5 - 5.1 mmoL/L Normal No Jan 6 informati 2017 1:15 [Moles/vo on in PM lume] in source Serum or data Plasma Sodium 136 - 145 mmoL/L Normal No Jan 28 [Moles/vo informati 2017 1:15 lume] in on in PM Serum or source Plasma data Aspartate 15 - 37 U/L No No Jan 28 informati informati 2016 1:15 aminotran on in on in PM sferase source source [Enzymati data data c activity/ volume] in Serum or Plasma Alanine 12 - 78 U/L Low No Jan 28 aminotran 2016 1:15 sferase on in PM [Enzymati source c data activity/ volume] in Serum or Plasma Protein 6.4 - 8.2 gm/dL Normal No Jan 28 [Mass/vol 2016 1:15 ume] in on in PM Serum or source Plasma data CBC W Auto Differential panel in Blood Observa Value Referen Units Interpr Notes Date tion ce etation Range Basophils 0 - 0.2 K/MM3 Normal No Jan 282016 1:15 [#/volume on in PM ] in source Blood by data Automated count Basophils 0.1 - 2.0 % Normal No Jan 28 / inform2016 1:15 leukocyte on in PM s in source Blood by data Automated count Eosinophi 0.0 - 0.4 K/mm3 High No Jan 28 ls 2016 1:15 [#/volume on in PM ] in source Blood by data Automated count Eosinophi 0.1 - % Normal No Jan 28 ls/100 12.0 2016 1:15 leukocyte on in PM s in source Blood by data Automated count Granulocy 1.3 - 8.0 K/mm3 Normal No Jan 28 regine 2016 1:15 [#/volume on in PM ] in source Blood by data Automated count Granulocy 37.0 - % Normal No Jan 28 regine/100 80.0 2016 1:15 leukocyte on in PM s in source Blood by data Automated count Hematocri 42.0 - % Low No Jan 28 t [Volume 52.0 ati 2016 1:15 on in PM Fraction] source of Blood data Hemoglobi 14.1 - g/dL Low No Jan 28 n 18.0 2016 1:15 [Mass/vol on in PM ume] in source Blood data Lymphocyt 0.7 - 4.5 K/mm3 Normal No Jan 28 es 2016 1:15 [#/volume on in PM ] in source Unspecifi data ed specimen by Automated count Lymphocyt 10 - 50 % Normal No Jan 28 es ati 2016 1:15 [#/volume on in PM ] in source Unspecifi data ed specimen by Automated count Erythrocy 27 - 31.2 pg Normal No Nov 6 te mean inform 2017 1:15 corpuscul on in PM ar source hemoglobi data n [Entitic mass] Erythrocy 31.8 - g/dl Normal No Nov 6 te mean 35.4 informati 2017 1:15 corpuscul on in PM ar source hemoglobi data n concentra tion [Mass/vol ume] by Automated count Erythrocy 82.2 - fl Normal No Nov 6 te mean 97.8 informati 2016 1:15 corpuscul on in PM ar volume source [Entitic data volume] by Automated count Monocytes 0.1 - 1.0 K/mm3 Normal No Nov 6 informati 2017 1:15 [#/volume on in PM ] in source Blood by data Automated count Monocytes 1.7 - 9.3 % Normal No Nov 6 /100 informati 2017 1:15 leukocyte on in PM s in source Blood by data Automated count Platelet 7.4 - fl Normal No Nov 6 mean 10.4 informati 2017 1:15 volume on in PM [Entitic source volume] data in Blood by Automated count Platelets 142 - 424 K/mm3 Normal No Nov 6 informati 2017 1:15 [#/volume on in PM ] in source Blood data Erythrocy 4.6 - 6.2 M/mm3 Low No Nov 6 regine informati 2017 1:15 [#/volume on in PM ] in [...] 6 as DETECTE DETECTE informa informa informa 2017 salmoni D tion in tion in tion in 1:10 PM mariel source source source [Presen data data data ce] in Unspeci fied specime n Astrovi NOT NOT No No No Nov 6 kyung DETECTE DETECTE informa informa informa 2017 [Presen [...] lla sp DETECTE DETECTE informa informa informa 2016 DNA D tion in tion in tion in 1:10 PM [Identi source source source fier] data data data in Unspeci fied specime n by Probe & target amplifi cation method Caliciv NOT NOT No No No Nov 6 irus DETECTE DETECTE informa informa informa 2016 [Identi [...] sp DNA DETECTE DETECTE informa informa informa 2017 [Identi D tion in tion in tion in 1:10 PM fier] source source source in data data data Unspeci fied specime n by Probe & target amplifi cation method Vibrio NOT NOT No No No Nov 6 sp DETECTE DETECTE informa informa informa 2017 identif D tion in tion in tion [...] Hemoglobi 14.1 - g/dL Low No Jan 26 n 18.0 informati 2017 9:45 [Mass/vol on in AM ume] in source Blood data Lymphocyt 0.7 - 4.5 K/mm3 Normal No Jan 4 es informati 2016 9:45 [#/volume on in AM ] in source Unspecifi data ed specimen by Automated count Lymphocyt 10 - 50 % Normal No Jan 26 es informati 2016 9:45 [#/volume on in AM ] in source Unspecifi data ed specimen by Automated count Erythrocy 27 - 31.2 pg Normal No Jan 26 te mean informati 2017 9:45 corpuscul on in AM ar source hemoglobi data n [Entitic mass] Erythrocy 31.8 - g/dl Normal No Jan 26 te mean 35.4 informati 2017 9:45 corpuscul on in AM ar source hemoglobi data n concentra tion [Mass/vol ume] by Automated count Erythrocy 82.2 - fl Normal No Jan 26 te mean 97.8 informati 2016 9:45 corpuscul on in AM ar volume source [Entitic data volume] by Automated count Monocytes 0.1 - 1.0 K/mm3 Normal No Jan 4 informati 2017 9:45 [#/volume on in AM ] in source Blood by data Automated count Monocytes 1.7 - 9.3 % Normal No Jan 4 /100 informati 2017 9:45 leukocyte on in AM s in source Blood by data Automated count Platelet 7.4 - fl Normal No Jan 26 mean 10.4 informati 2017 9:45 volume on in AM [Entitic source volume] data in Blood by Automated count Platelets 142 - 424 K/mm3 Normal No Jan 4 informati 2017 9:45 [#/volume on in AM ] in source Blood data Erythrocy 4.6 - 6.2 M/mm3 Low No Jan 4 regine informati 2017 9:45 [#/volume on in AM ] in source Amniotic data fluid Erythrocy 11.5 - % Normal No Jan 26 te 17.5 informati 2017 9:45 distribut on in AM ion width source [Entitic data volume] by Automated count Leukocyte 4.8 - K/MM3 Normal No Jan 4 s 10.8 informati 2016 9:45 [#/volume on [...] No Sep 13 in time 11.8 informati 2016 (PT) in on in 12:55 PM Platelet [...] Normal No Sep 13 partial 34.0 informati 2016 thrombpla on in 12:55 PM stin time [...] Calcium 8.5 - mg/dL Normal No Sep [Mass/vol 10.1 informati 2017 ume] in on [...] High No Sep 13 e 1.30 informati 2017 [Mass/vol on in 12:55 PM [...] 78 U/L Low No Sep 13 aminotran informati 2017 sferase on in 12:55 PM [Enzymati [...] 2.0 % Normal No Sep 13 /100 informati 2016 leukocyte on in 12:55 PM s in source Blood by data Automated count Eosinophi 0.0 - 0.4 K/mm3 Normal No Sep 13 ls inform2016 [#/volume on in 12:55 PM ] [...] No Sep 13 t [Volume 52.0 informati 2016 on in 12:55 PM Fraction] source of Blood data Hemoglobi 14.1 - g/dL No No Sep 13 n 18.0 informati 2016 [Mass/vol on in on in 12:55 PM [...] Platelet 7.4 - fl Normal No Nov 13 mean 10.4 2016 volume on in 12:55 PM [Entitic source volume] data in Blood by Automated count Platelets 142 - 424 K/mm3 Normal No Sep 13 inform2016 [#/volume on in 12:55 PM ] in source Blood data Erythrocy 4.6 - 6.2 M/mm3 Normal No Sep 13 regine inform2016 [#/volume on in 12:55 PM ] in source Amniotic data fluid Erythrocy 11.5 - % Normal No Dec 05 te 17.5 2016 distribut on in 12:55 PM ion width source [Entitic data volume] by Automated count Leukocyte 4.8 - K/MM3 Normal No Sep 13 s 10.8 inform2016 [#/volume on in 12:55 PM ] in source Blood data
--- OUTSIDE RECORDS SUMMARY | 2017-02-07 21:15 | External Medical Summary Rpt | CCD ---
Author Author , YEIMY BATES Address Unknown Phone [email or web address] Immunization Name Date Rout CVX Reac Dose Comm Prov Is Faci e tion ent ider Refu lity Give sed n PPV2 07-1 33 0.5 Hist [facility] No [facility] 3 1-20 mL oric 1 1 15 al Info rmat ion - Sour ce Unsp ecif ied
--- OUTSIDE RECORDS SUMMARY | 2017-02-07 21:15 | External Medical Summary Rpt ---
Author Author PAULO Marshall, PAULO [employer] Address Unknown Phone Unavailable [...] Serum or Plasma RESU LTS CALLED TO: [facility] 01/29/17 0630 Ez Ramos e Sodium 136 [...]
--- OUTSIDE RECORDS SUMMARY | 2017-02-07 21:15 | External Medical Summary Rpt | CCD ---
Author Author , YEIMY BATES Address Unknown Phone [email or web address] Immunization Name Date Rout CVX Reac Dose Comm Prov Is Faci e tion ent ider Refu lity Give sed n PPV2 07-1 33 0.5 Hist [facility] No [facility] 3 1-20 mL oric 1 1 15 al Info rmat ion - Sour ce Unsp ecif ied
[2017-02-07 21:28] LABS: URINE BILIRUBIN - DIPSTICK NEGATIVE (NEG); URINE BLOOD NEGATIVE (NEG)
[2017-02-07] MEDS ORDERED: ASPIRIN 325MG325 MG PO (21:32)
[2017-02-07] MEDS ORDERED: PANTOPRAZOLE SO40 MG PO (21:33)
[2017-02-07] MEDS ORDERED: ESSENTIAL DAIL1 EACH PO (21:34)
[2017-02-07] MEDS ORDERED: ZOFRAN4 MG PO (21:34)
[2017-02-07] MEDS ORDERED: REMERON15 MG PO (21:35)
[2017-02-07] MEDS ORDERED: TYLENOL ES500 MG PO ×2 (21:36→23:46)
[2017-02-07] MEDS ORDERED: LASIX 40MG. TAB40 MG PO (21:36)
[2017-02-07] MEDS ORDERED: COREG 12.5 MG12.5 MG PO (21:36)
[2017-02-07] MEDS ORDERED: NICOTINE 7 MG TD (21:37)
[2017-02-07 21:49] LABS: URINE SQUAMOUS CELLS OCC #/hpf (OCC)
[2017-02-07 22:32] VITALS: BP 133/75
[2017-02-07 22:58] VITALS: BP 100/58
[2017-02-07] MEDS ORDERED: CIPROFLOXACIN500 MG PO (23:27)
[2017-02-07] MEDS ORDERED: ENSURE ORIGINA237 ML PO (23:30)
[2017-02-07] MEDS ORDERED: TOPICAINE 55% TP (23:34)
[2017-02-08 04:01] VITALS: BP 114/64
[2017-02-08 07:04] LABS: LYMPH # 2.5 K/mm3 (0.7-4.5); LYMPH % 29.2 % (10-50)
--- NOTE | 2017-02-08 07:17 | HISTORY AND PHYSICAL REPORT ---
Demographics: Admit date: 02/07/17 Chief complaint: Not eating PRIMARY DIAGNOSIS: ACUTE RENAL FAILURE; DEHYDRATION Allergies: Coded Allergies: No Known Allergies (01/28/17) History of present illness: History of present illness: 81-year-old male with history of chronic kidney disease, hypertension, hemorrhagic stroke was brought to the emergency department from [facility] where he has been residing for the last week due to abnormal labs (elevated creatinine) as well as poor appetite. It was reported to the ER staff the patient been complaining of sore throat for 2 days. Patient had a creatinine significantly elevated compared to discharge from his last hospitalization less than 2 weeks ago. He had poor by mouth intake over 48 hours with continued use of losartan. He had acute kidney injury on top of chronic renal failure and has been admitted for IV fluids. This morning the patient denies throat pain and tells me he is hungry. Some additional history is provided by his daughter who tells me that on Saturday of this week the patient became upset because he was no longer allowed to smoke and essentially refused to eat. Past medical history: Family HX Family Hx Insignificant No Diabetes No CAD No Hypertension Yes Hyperlipidemia No Cancer No TB No Immunization HX DT/Tetanus Unknown Flu Refused Pneumonia Unknown TB Test in last year Yes Result Negative General CAD? No Angina: No ME: No Hypertension? Yes Hyperlipidemia? No CHF? No DVT? No PE? No COPD? Yes Asthma? No Anemia? No GERD? No Gastric ulcers? No GI Bleed? No Hernia? No Thyroid Problems? No Hypothyroidism? No CVA? No Seizures? No Diabetes? No Renal Insuffiency? Yes UTI? No Stones? No BPH? No GB Disease: No Nephritic Syndrome? No Asplenia? No Hepatitis? No Sickle Cell Disease? No Arthritis? Yes Migraines? No Cataracts? No Glaucoma? No MRSA? No HIV? No TB? No Anxiety? No Depression? No Cancer? No More? No Past Surgical HX Previous Surgery?Y RIGHT EAR SURGERY AAA Current home meds: Active Scripts Psyllium Husk (Metamucil) 3 TSP PO DAILY #660 GM Ref 2 Prov: 01/30/17 POTASSIUM CHL (Potassium Chloride) 10 MEQ PO DAILY #30 TAB Prov: 01/30/17 Reported Medications Losartan Potassium (Losartan 50MG) 50 MG PO DAILY #30 ASPIRIN (Aspirin 325MG) 325 MG PO DAILY Pantoprazole Sodium (Pantoprazole 40MG) 40 MG PO DAILY Multivit With Calcium,Iron,Min (Essential Daily) 1 EACH PO DAILY ONDANSETRON HCL (Zofran 4MG Tab) 4 MG PO Q6HP PRN NAUSEA AND VOMITING Mirtazapine (Remeron) 7.5 MG PO QHS Carvedilol (Coreg 12.5Mg) 12.5 MG PO BID NICOTINE (Nicotine Patch) 14 MG TD DAILY Ciprofloxacin HCl 250 MG PO BID Lactose-Reduced Food (Ensure Original) 8 OZ PO BID Lidocaine (Topicaine 5) 5 TP PRN PRN PAIN-GUMLINE Acetaminophen (Tylenol XS 500MG) 500 MG PO Q4HP PRN PAIN/FEVER Social Hx: Smoking HX Tobacco Yes Type Cigarettes Packs/day < 1 PACK Alcohol Alcohol: No Hx of Drug Use Drug Use? No Review of systems: Constitutional No: chills, diaphoresis, fever. Respiratory cough. Cardiovascular No chest pain Gastrointestinal/Abdominal poor appetite Genitourinary no symptoms reported. Musculoskeletal back pain. Neurological Yes: no symptoms reported. Exam: Lab data for last 24 hours: Laboratory Tests 02/08/17 0615: Sodium 136, Potassium 4.5, Chloride 98, Carbon Dioxide 32, BUN 50 H, Creatinine 3.1 H, Estimated Creat Clear 15 L, Estimated GFR (MDRD) 19, Glucose 85, Calcium 8.5, Total Bilirubin 0.4, AST 12 L, ALT 8 L, Alkaline Phosphatase 96, Total Protein 6.9, Albumin 3.0 L, Globulin 3.9 H, Albumin/Globulin Ratio 0.8 L, WBC 8.7, RBC 3.72 L, Hgb 11.0 L, Hct 34.3 L, MCV 92.0, RDW 14.0, Plt Count 386, MPV 7.6, Gran % 51.9, Gran # 4.5, Lymphocytes % 29.2, Monocytes % 9.5 H, Eosinophils % 8.3, Basophils % 1.1, Lymphocytes # 2.5, Monocytes # 0.8, Eosinophils # 0.7 H, Basophils # 0.1, PUBS MCHC 32.1, MCH 29.5 02/07/17 2120: Urine Color YELLOW, Urine Appearance CLEAR, Urine pH 7.5, Ur Specific [place] 1.010, Urine Protein NEGATIVE, Urine Ketones NEGATIVE, Urine Blood NEGATIVE, Urine Nitrate NEGATIVE, Urine Bilirubin NEGATIVE, Urine Urobilinogen 0.2, Ur Leukocyte Esterase NEGATIVE, Urine RBC OCC, Urine WBC OCC, Ur Squamous Epith Cells OCC, Urine Bacteria TRACE, Hyaline Casts 3-5, Urine Glucose NEGATIVE 02/07/172002: Creatine Kinase 50, CK-MB (CK-2) Rel Index 1.0, CK and CKMB Interp < 0.5, Troponin I < 0.02 02/07/172002: Sodium 133 L, Potassium 5.2 H, Chloride 92 L, Carbon Dioxide 34 H, BUN 56 H , Creatinine 3.6 H, Estimated Creat Clear 19 L, Estimated GFR (MDRD) 16, Glucose 92, Calcium 8.8, Total Bilirubin 0.5, AST 14 L, ALT 10 L, Alkaline Phosphatase 99, Total Protein 7.4, Albumin 3.3 L, Globulin 4.1 H, Albumin/ Globulin Ratio 0.8 L, Amylase 69, Lipase 182, WBC 10.6, RBC 3.85 L, Hgb 11.3 L, Hct 34.8 L, MCV 90.5, RDW 14.0, Plt Count 432 H, MPV 7.8, Gran % 54.0, Gran # 5.7, Lymphocytes % 27.5, Monocytes % 9.2, Eosinophils % 8.3, Basophils % 1.0, Lymphocytes # 2.9, Monocytes # 1.0, Eosinophils # 0.9 H, Basophils # 0.1, PUBS MCHC 32.6, MCH 29.5 Microbiology 02/07 2143 THROAT: Throat Culture - RECD Admission vital signs: 1ST Vital Signs Result Date Time Pulse Ox 94 02/07 1942 B/P 100/59 02/07 1942 Temp 98.0 02/07 1942 Pulse 57 02/07 1942 Resp 20 02/07 1942 O2 Delivery ROOM AIR 02/08 2232 Additional information: Patient awakens easily this morning and is conversant. ENT examination reveals a dry oropharynx with thickened saliva and mild posterior oropharyngeal erythema but no evidence of thrush. Neck is without lymphadenopathy. Lungs are distant but clear to auscultation. Heart has a regular rate and rhythm. Abdomen is thin, soft, nontender. Patient has active range of motion all extremities. Plan: Problem List 1. Acute kidney injury Plan: Patient has been admitted for IV fluid hydration. Creatinine is already trending down. Anticipate additional 24 hours of IV fluids with monitoring of by mouth intake. Losartan will be discontinued permanently and if the patient requires any antihypertensives he will be placed on amlodipine. at 0716
--- NOTE | 2017-02-08 07:18 | PHARMACY CLINIC NOTE ---
Patient Demographics Patient Demographics Admission date: 02/07/17 Date: 02/08/17 Time: 0718 Allergies Coded Allergies: No Known Allergies (01/28/17) HEIGHT- FT: 5 IN: 6.00 K.720 VTE General Information Labs: Laboratory Tests 02/08 Hematology Hgb (14.1 - 18.0 g/dL) 11.0 L 11.3 L Hct (42.0 - 52.0 %) 34.3 L 34.8 L Plt Count (142 - 424 K/mm3) 386 432 H Disclaimer The following section includes nursing documentation that has been pulled in for pharmacy review. Patient's VTE score: 3 Patient's VTE Risk: LOW RISK Clinical trial participant? No VTE prophylaxis [id number] VTE prophylaxis ordered? Yes Type of prophylaxis/treatment: ROMMEL at 0718
[2017-02-08 07:43] VITALS: BP 105/48
[2017-02-08 15:34] VITALS: BP 92/48
[2017-02-08 20:03] VITALS: BP 116/62
[2017-02-08 20:15] VITALS: BP 116/62
[2017-02-09 04:00] VITALS: BP 124/65
[2017-02-09 07:39] VITALS: BP 101/65
--- NOTE | 2017-02-09 07:44 | Discharge Summary ---
See Addendum Demographics Admit date: 02/07/17 Discharge date: 02/09/17 Discharge diagnoses Problem List 1. Acute kidney injury History of present illness History of present illness 81-year-old male with history of chronic kidney disease, hypertension, hemorrhagic stroke was brought to the emergency department from [facility] where he has been residing for the last week due to abnormal labs (elevated creatinine) as well as poor appetite. It was reported to the ER staff the patient been complaining of sore throat for 2 days. Patient had a creatinine significantly elevated compared to discharge from his last hospitalization less than 2 weeks ago. He had poor by mouth intake over 48 hours with continued use of losartan. He had acute kidney injury on top of chronic renal failure and has been admitted for IV fluids. This morning the patient denies throat pain and tells me he is hungry. Some additional history is provided by his daughter who tells me that on Saturday of this week the patient became upset because he was no longer allowed to smoke and essentially refused to eat. Patient was admitted and started on IV fluids. His appetite was average. Over the course of about 36 hours patient's creatinine went from 3.6 down to 2.3. Patient was discharged back to [facility]. His losartan will be discontinued and he will stay on carvedilol. Should he need additional antihypertensives I would suggest amlodipine to avoid renal problems. Medications Medications: Discharge meds are as noted. Follow up Follow up in office in: as needed with: Albaro Jackson MD at [id number]
[2017-02-09 09:55] VITALS: BP 101/65
== END 2017-02-09 10:20 | DRG 684 ==
LOC: ER 19:38 → 2ND 21:09
PROVIDERS: Emergency Medicine; Family Medicine; Internal Medicine Adolescent Medicine
DX: I12.9 Hypertensive chronic kidney disease with stage 1 through stage 4 chronic kidney disease, or unspecified chronic kidney disease (principal); J44.9 Chronic obstructive pulmonary disease, unspecified; N18.9 Chronic kidney disease, unspecified; Z86.73 Personal history of transient ischemic attack (TIA), and cerebral infarction without residual deficits; Z72.0 Tobacco use
CPT/HCPCS: G0378